=== PATIENT | female | born 1930 | race Caucasian/White ===

== ENCOUNTER 2017-06-27 19:52 | Inpatient (IN) | payer BC ==
[2017-06-27 21:38] LABS: MCH 29.1 pg (25.7-33.7); MCHC 33.4 g/dl (32.0-36.0); MEAN CELL VOLUME 87.2 fl (80-96); PLATELET COUNT 147 K/MM3 (134-434); RDW 14.7 % (11.6-15.6); WHITE BLOOD COUNT 5.8 K/mm3 (4.0-10.0)
[2017-06-27 21:50] LABS: INR 1.1 (0.82-1.09); PROTHROMBIN TIME (PATIENT) 12.1 SEC (9.98-11.88)
[2017-06-27 22:05] LABS: ALBUMIN 4.1 g/dl (3.4-5.0); ANION GAP 8 (8-16); CALCIUM 9.2 mg/dL (8.5-10.1); CO2 28 mmol/L (21-32); CREATININE 0.9 mg/dL (0.55-1.02); GLUCOSE,RANDOM 97 mg/dL (74-106); SGOT/AST 15 U/L (15-37); SGPT/ALT 19 U/L (12-78)
[2017-06-27 22:07] LABS: ALK PHOS 84 U/L (45-117); BILIRUBIN,TOTAL 0.6 mg/dL (0.2-1.0); TOT PROT 7.3 g/dl (6.4-8.2)
[2017-06-27 22:13] LABS: URINE APPEARANCE SLCLOUDY; URINE BILIRUBIN NEGATIVE (NEGATIVE); URINE BLOOD NEGATIVE (NEGATIVE); URINE COLOR YELLOW; URINE GLUCOSE (UA) NEGATIVE (NEGATIVE); URINE KETONE NEGATIVE (NEGATIVE); URINE NITRITE POSITIVE (NEGATIVE); URINE PROTEIN NEGATIVE (NEGATIVE); URINE UROBILINOGEN NEGATIVE mg/dL (0.2-1.0)
--- NOTE | 2017-06-27 22:19 | PDOC ---
History of Present Illness - General Chief Complaint: Rectal Bleed Stated Complaint: BLEEDING, CONFUSION Time Seen by Provider: 06/27/17 20:34 - History of Present Illness Initial Comments: 06/27/17 22:20 CHIEF COMPLAINT: AMS, bleeding HISTORY OF PRESENT ILLNESS: 87 yo F with hx of HTN, HLD, aortic aneursym s/p repair, mild dementia. fibroids presents to ED with AMS since approximately 1.5 hours ago. Daughter is at bedside; patient lives at home and when daughter returned from home today, the patient was found sitting on the porch in her undergarments without proper clothing, and upon moving the patient the daughter noticed "three blood clots on her dress." Daughter states that the patient is acting out of character despite the fact that she has "mild forgetfulness and sometimes can't find her words." No recent travel or sick contacts. PAST MEDICAL HISTORY: Denies past medical history FAMILY HISTORY: Denies SOCIAL HISTORY: Denies tobacco, alcohol, illicit drug use. SURGICAL HISTORY: cataract surgery ALLERGIES: nifedipine REVIEW OF SYSTEMS - per daughter at bedside, patient minimally responsive and confused General/Constitutional: "She seems a little more confused than normal" HEENT: Denies change in vision. Denies ear pain or discharge. Denies sore throat. Cardiovascular: Denies chest pain or shortness of breath. Respiratory: Denies cough, wheezing, or hemoptysis. Gastrointestinal: Denies nausea, vomiting, diarrhea or constipation. Denies rectal bleeding. Genitourinary: "We saw some blood clots on her dress." Musculoskeletal: Denies joint or muscle swelling or pain. Denies neck or back pain. Skin and breasts: Denies rash or easy bruising. PHYSICAL EXAM General Appearance: Well-appearing, appropriately dressed. No apparent distress. HEENT: EOMI, PERRLA, normal ENT inspection, normal voice, TMs normal, pharynx normal. No conjunctival pallor. No photophobia, scleral icterus. Neck: Supple. Trachea midline. No tenderness, rigidity, carotid bruit, stridor , lymphadenopathy, or thyromegaly. Respiratory/Chest: Lungs CTAB. Cardiovascular: RRR. S1, S2. Gastrointestinal/Abdominal: Normal bowel sounds. Abdomen soft, non-distended. No tenderness or rebound tenderness. No organomegaly, pulsatile mass, guarding , hernia, hepatomegaly, splenomegaly. Lymphatic: No adenopathy, tenderness. Musculoskeletal/Extremities: Normal inspection. FROM of all extremities, normal capillary refill. Pelvis Stable. No CVA tenderness. No tenderness to extremities, pedal edema, swelling, erythema or deformity. Integumentary: Appropriate color, dry, warm. No cyanosis, erythema, jaundice or rash Neurologic: Patient with some confusion and difficulty finding words. Appropriate mood/affect. Motor strength 5/5. No appreciable EOM palsy, facial droop or sensory deficit. Past History - Past Medical History Allergies/Adverse Reactions: Allergies Allergy/AdvReac Type Severity Reaction Status Date / Time nifedipine [From Procardia] Allergy Verified 06/27/17 20:03 Home Medications: Ambulatory Orders Cholecalciferol (Vitamin D3) [Vitamin D3] 1,000 unit PO DAILY 06/27/17 Cyanocobalamin Vit B-12 Inj. [Vitamin B12 Injection -] 1,000 mcg IM MONTHLY Levothyroxine [Synthroid -] 75 mcg PO DAILY 06/27/17 Losartan Potassium 25 mg PO DAILY 06/27/17 Dementia: Yes (possible) HTN: Yes Hypercholesterolemia: Yes - Surgical History Abdominal Surgery: (AAA REPAIR) - Psycho/Social/Smoking Cessation Hx Suicidal Ideation: No Smoking History: Never smoked Hx Alcohol Use: No Drug/Substance Use Hx: No *Physical Exam - Vital Signs Last Vital Signs Temp Pulse Resp BP Pulse Ox 98.4 F 80 18 130/74 90 L 06/27/17 20:03 06/27/17 20:03 06/27/17 20:03 06/27/17 20:03 06/27/17 20:03 Heart Score/ECG Review - History History: Slightly suspicious - Electrocardiogram EKG: Non specific repolarization disturbance - Age Age: >/= 65 - Risk Factors Risk Factors Heart Score: Yes Hx Hypertension, Yes Smoking History Based on the list above the patient has:: 1-2 risk factors - Troponin Troponin: >/=3x normal limit - Score Heart Score - Total: 6 ED Treatment Course - LABORATORY CBC & Chemistry Diagram: 06/27/17 21:10 06/27/17 21:10 - ADDITIONAL ORDERS Additional order review: Laboratory Results 06/27/17 06/27/17 21:10 20:45 INR 1.10 Stool Occult Blood Negative 06/27/17 21:10 RBC 4.19 MCV 87.2 MCHC 33.4 RDW 14.7 MPV 9.0 Neutrophils % Y Lymphocytes % Y - RADIOLOGY Radiology Studies Ordered: Category Date Time Status HEAD CT WITHOUT CONTRAST [CT] Stat CT Scan 06/27/17 20:58 Ordered Medical Decision Making - Medical Decision Making 06/27/17 23:25 87 yo F with hx of HTN, HLD, mild dementia presents to ED with AMS since approximately 1.5 hours ago. -CBC, CMP, PT/INR, trop -UA, UCx -Head CT -Pelvic US EKG unchanged from prior of 08/29. UA positive for nitrates, 24 WBC. Will cover with ceftriaxone. Head CT negative. 1st troponin 0.2. Heart score 6. Will admit for CASSIE. 06/27/17 23:44 Discussed case with covering PMD Mayte, will admit to tele for CASSIE. 2nd trop ordered. Ultrasound results: Uterine dimensions are 6.4 x 2.7 x 4.3 cm. Endometrial stripe is thickened for patient age measuring 1.1 cm. There is trace fluid within the endometrial cavity. The ovaries are not seen on this examination. There is no obvious free fluid. Read by: Vlad Syed MD *DC/Admit/Observation/Transfer Diagnosis at time of Disposition: Chest pain, rule out acute myocardial infarction Altered mental status Qualifiers: Altered mental status type: unspecified Qualified Code(s): R41.82 - Altered mental status, unspecified Urinary tract infection Qualifiers: Urinary tract infection type: site unspecified Hematuria presence: without hematuria Qualified Code(s): N39.0 - Urinary tract infection, site not specified - Discharge Dispostion Admit: Yes - Referrals
[2017-06-27 22:25] LABS: URINE LEUK ESTERASE 1+ (NEGATIVE)
[2017-06-27 22:28] LABS: URINE BACTERIA MODERATE /hpf (NONE SEEN); URINE MUCUS RARE; URINE RBC 1 /hpf (0-3); URINE WBC 24 /hpf (3-5)
[2017-06-27 22:34] LABS: BASOPHIL (MANUAL) 1 % (0-2.0)
[2017-06-27 22:36] LABS: TROPONIN I 0.2 ng/ml (0.00-0.05)
[2017-06-27] MEDS ORDERED: CEFTRIAXONE 1 GM in DEXTROSE 5%-WATER - 50 ML IVPB ONE (23:16)
[2017-06-27] MEDS ORDERED: ASPIRIN 81 MG CHEWABLE TABLETS PO ONE (23:20)
[2017-06-27] MEDS ORDERED: ASPIRIN 81 MG CHEWABLE TABLETS ONE (23:32)
[2017-06-27] MEDS ORDERED: CEFTRIAXONE 50 ML ONE (23:32)
[2017-06-28 02:50] LABS: TROPONIN I 0.18 ng/ml (0.00-0.05)
[2017-06-28 03:57] VITALS: BMI 27.9
[2017-06-28] MEDS ORDERED: ACETAMINOPHEN 325 MG TABLET (FP) PO PRN (05:35)
--- NOTE | 2017-06-28 08:25 | HP ---
Admitting History and Physical - Admission History of Present Illness: 87 yo F with hx of HTN, HLD, aortic aneursym s/p repair, mild dementia. 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 ASSISTANT: Yes: Dementia Cardiovascular: Yes: Aneurysm (AAA), HTN, Hyperlipdemia, Other Heme/Onc: Yes: B12 Deficiency Musculoskeletal: Yes: Osteoarthritis Endocrine: Yes: Hypothyroidism - Smoking History Smoking history: Never smoked - Alcohol/Substance Use Hx Alcohol Use: No Home Medications - Allergies Allergies/Adverse Reactions: Allergies Allergy/AdvReac Type Severity Reaction Status Date / Time nifedipine [From Procardia] Allergy Verified 06/27/17 20:03 - Home Medications Home Medications: Ambulatory Orders Cholecalciferol (Vitamin D3) [Vitamin D3] 1,000 unit PO DAILY 06/27/17 Cyanocobalamin Vit B-12 Inj. [Vitamin B12 Injection -] 1,000 mcg IM MONTHLY Levothyroxine [Synthroid -] 75 mcg PO DAILY 06/27/17 Losartan Potassium 25 mg PO DAILY 06/27/17 Review of Systems - Review of Systems Constitutional: reports: Weakness Neurological: reports: Confusion Physical Examination Vital Signs: Vital Signs Temperature 98 F 06/28/17 06:23 Pulse Rate 62 06/28/17 06:23 Respiratory Rate 20 06/28/17 06:23 Blood Pressure 144/83 06/28/17 06:23 O2 Sat by Pulse Oximetry (%) 90 L 06/27/17 20:03 Cardiovascular: Yes: S1, S2 Respiratory: Yes: Regular, CTA Bilaterally Gastrointestinal: Yes: Normal Bowel Sounds, Soft, Other (ABDOMINAL WALL HERNIA) . No: Tenderness Imaging - Results Cat Scan: Report Reviewed Problem List - Problems (1) Altered mental status Assessment/Plan: R/O UTI CT OF HEAD--OLD CVA MONITOR Code(s): R41.82 - ALTERED MENTAL STATUS, UNSPECIFIED Qualifiers: Altered mental status type: unspecified Qualified Code(s): R41.82 - Altered mental status, unspecified (2) Urinary tract infection Assessment/Plan: JOSE BX ID CONSULT CULTURES Code(s): N39.0 - URINARY TRACT INFECTION, SITE NOT SPECIFIED Qualifiers: Urinary tract infection type: site unspecified Hematuria presence: without hematuria Qualified Code(s): N39.0 - Urinary tract infection, site not specified; R31.9 - Hematuria, unspecified (3) Elevated troponin Assessment/Plan: FOLLOW TRENDS ECHO CARDIO Code(s): R74.8 - ABNORMAL LEVELS OF OTHER SERUM ENZYMES (4) Hypothyroid Assessment/Plan: CHECK DUSTIN SYNTHROID Code(s): E03.9 - HYPOTHYROIDISM, UNSPECIFIED
[2017-06-28 09:44] LABS: FREE T4 0.88 ng/dl (0.76-1.46); THYROID STIMULATING HORMONE 3.69 uIU/ml (0.358-3.74); TROPONIN I 0.18 ng/ml (0.00-0.05)
[2017-06-28] MEDS ORDERED: CEFTRIAXONE 50 ML IVPB SCH (10:00)
--- NOTE | 2017-06-28 10:09 | PN ---
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 (short form) - Note 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: ID consult dictated 87 year old female with dementia-admitted for abnormal behavior and blood clots on her dress currently she is awake and alert she has some word finding difficulties which per ER note is old no fevers no c/o dysuria no SPT or CVAT on exam I doubt that she has a UTI this would certainly not explain her behavior yesterday suggest neurology evaluation ?work up for bleeding- ?per vagina, per rectum +troponins per cardiology can d/c antiibotics suspect asymptomatic bacteriuria Problem List - Problems (1) Asymptomatic bacteriuria Code(s): R82.71 - BACTERIURIA (2) Altered mental status Code(s): R41.82 - ALTERED MENTAL STATUS, UNSPECIFIED Qualifiers: Altered mental status type: unspecified Qualified Code(s): R41.82 - Altered mental status, unspecified (3) Elevated troponin Code(s): R74.8 - ABNORMAL LEVELS OF OTHER SERUM ENZYMES
--- NOTE | 2017-06-28 10:24 | EKG ---
Test Reason : Blood Pressure : / mmHG Vent. Rate : 068 BPM Atrial Rate : 068 BPM P-R Int : 194 ms QRS Dur : 130 ms QT Int : 452 ms P-R-T Axes : 029 -57 114 degrees QTc Int : 480 ms NORMAL SINUS RHYTHM LEFT AXIS DEVIATION CONSISTANT WITH LAFB. RBBB PATTERN IN V2 LEFT VENTRICULAR HYPERTROPHY WITH QRS WIDENING AND REPOLARIZATION ABNORMALITY CANNOT RULE OUT ANTEROSEPTAL INFARCT , AGE UNDETERMINED ABNORMAL ECG WHEN COMPARED WITH ECG OF 27-JUN-2017 23:25, LEFT BUNDLE BRANCH BLOCK IS NO LONGER PRESENT qS IN V2 EITHER RELATED TO LAFB OR ASWMI,AGE INDETERMINATE REPEAT EKG IF CLINICALLY INDICATED Confirmed by ERIC OLIVA MD ([id number]) on 06/28/2017 10:24:10 AM Referred By: Confirmed By:ERIC OLIVA MD
--- NOTE | 2017-06-28 10:46 | CONS ---
INFECTIOUS DISEASE CONSULTATION DATE OF CONSULTATION: 06/28/2017 HISTORY OF PRESENT ILLNESS: This is an 87-year-old woman with mild dementia who lives at home with her family. She lives at home, and when her daughter returned home, she found she was sitting on the porch in her undergarments and she was noted to have some blood clots on her clothing. The patient appeared to be acting bizarrely and was brought to the emergency room for these issues. She has some mild forgetfulness and has some word-finding difficulties intermittently at baseline. This is per the ER note. There is no history of any recent travel or sick contacts. There are no fevers or chills. I am asked to see her for possible UTI. The patient is awake and alert. She denies chest pain. She denies dysuria or back pain. She has no fevers or chills. PAST MEDICAL HISTORY: Notable for hypertension, hyperlipidemia, and mild dementia, as well as fibroids. SURGICAL HISTORY: Notable for aortic aneurysm repair. She has had a cataract surgery as well. FAMILY HISTORY: Noncontributory. SOCIAL HISTORY: She lives with her daughter. There is no history of tobacco or illicit drug use. REVIEW OF SYSTEMS: Per the daughter, she seems a little more confused than normal. Otherwise, it is negative except for the blood clots on her dress. PHYSICAL EXAMINATION: General: She is awake and alert. She has been afebrile. She is resting quite comfortably. Vital Signs: Temperature is 98, pulse is 62, blood pressure 144/83, respiratory rate is 20. She weighs 168 pounds. HEENT: She is normocephalic. Her eyes are anicteric. She has no thrush or pharyngitis. Neck: Supple. Lungs: Clear to auscultation. Heart: Regular rate and rhythm. Abdomen: Soft. She has a large incisional hernia with some soft, palpable bowel that is nontender. She has no suprapubic or CVA tenderness. Extremities: Without edema. DIAGNOSTIC DATA: White count is 5.8, hemoglobin 12.2, platelets are 147. Her BUN and creatinine are 13 and 0.9 with normal LFTs. Her troponin is elevated at 0.20. Urinalysis shows 24 white cells. Stool occult blood was negative. Urine culture has been sent. Head CT was done. 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 No acute pathology was noted. Bladder ultrasound is notable for thickened endometrium. In summary, this is an 87-year-old woman admitted for abnormal behavior and blood clots on her dress. I doubt she has a UTI. This would not explain her behavior. I suggest neurology evaluation, workup for her bleeding (is this vaginal or rectal?). She probably will need a gynecologic evaluation. As well, she has positive troponins. I would suggest we stop her antibiotics as this is most consistent with asymptomatic bacteriuria. Cardiology to evaluate the elevated troponins and neurologic evaluation of altered mental status. We will see the patient p.r.n. Please call back if needed. LORENE MARTINEZ M.D. [id number]
[2017-06-28] MEDS: LOSARTAN POTASSIUM 25 MG TABLET PO SCH (11:17)
[2017-06-28] MEDS: LEVOTHYROXINE NA 75 MCG TABLET (FP) PO SCH (11:17)
--- NOTE | 2017-06-28 11:50 | EKG ---
Test Reason : Blood Pressure : / mmHG Vent. Rate : 072 BPM Atrial Rate : 072 BPM P-R Int : 206 ms QRS Dur : 122 ms QT Int : 422 ms P-R-T Axes : 041 -53 107 degrees QTc Int : 462 ms NORMAL SINUS RHYTHM LEFT AXIS DEVIATION LEFT BUNDLE BRANCH BLOCK ABNORMAL ECG WHEN COMPARED WITH ECG OF 22-AUG-2016 20:07, LEFT BUNDLE BRANCH BLOCK IS NOW PRESENT MINIMAL CRITERIA FOR SEPTAL INFARCT ARE NO LONGER PRESENT CHANGE IN VECTOR IN V1-V2 REPEAT EKG IF CLINICALLY INDICATED Confirmed by ERIC OLIVA MD ([id number]) on 06/28/2017 11:50:28 AM Referred By: Confirmed By:ERIC OLIVA MD
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
--- NOTE | 2017-06-28 14:09 | CON.CARD ---
Consult Consult Specialty:: Cardiology Referred by:: Dr. Bates Reason for Consultation:: Elevated troponin - History of Present Illness Chief Complaint: Altered mental status History of Present Illness: 87 year-old woman with a PMHx of HTN, HLD, aortic aneursym s/p repair, mild dementia. fibroids admitted with altered mental status with evidence of UTI. The patient was found sitting on the porch in her undergarments and three blood clots on her dress. She has been treated for UTI. But she is still confused. She was found to have elevated troponin (0.18, 0.18). Her ECG is uninterpretable due to LBBB. Tele shows sinus rhythm with occasional VPCs. She denies chest pain, shortness of breath or palpitation. No edema, orthopnea or PND. 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 [Vitamin B12 Injection -] 1,000 mcg IM MONTHLY Levothyroxine [Synthroid -] 75 mcg PO DAILY 06/27/17 Losartan Potassium 25 mg PO DAILY 06/27/17 Review of Systems - Review of Systems Constitutional: reports: Other (Awake, alert. Confused.) Eyes: reports: No Symptoms HENT: reports: No Symptoms Neck: reports: No Symptoms Cardiovascular: reports: No Symptoms Respiratory: reports: No Symptoms Gastrointestinal: reports: No Symptoms Genitourinary: reports: No Symptoms Breasts: reports: No Symptoms Reported Neurological: reports: Confusion Endocrine: reports: No Symptoms Hematology/Lymphatic: reports: No Symptoms Vital Signs: Vital Signs Temperature 98.2 F 06/28/17 10:00 Pulse Rate 66 06/28/17 10:00 Respiratory Rate 14 06/28/17 10:00 Blood Pressure 150/74 06/28/17 10:00 O2 Sat by Pulse Oximetry (%) 94 L 06/28/17 08:00 Constitutional: Yes: Well Nourished, No Distress Eyes: Yes: Conjunctiva Clear, PERRL HENT: Yes: Atraumatic, Normocephalic Neck: Yes: Supple, Trachea Midline Respiratory: Yes: Regular, CTA Bilaterally Gastrointestinal: Yes: Normal Bowel Sounds, Soft Cardiovascular: Yes: Regular Rate and Rhythm JVD: No Carotid Bruit: No Heart Sounds: Yes: S1, S2 Murmur: Yes: Systolic Murmur, Grade 1 Extremities: Yes: WNL Edema: No Peripheral Pulses WNL: Yes Integumentary: Yes: WNL Psychiatric: Yes: Other (Confused) - Other Data Labs, Other Data: INR, PTT INR 1.10 (0.82-1.09) 06/27/17 21:10 Troponin, BNP 06/28/17 06/28/17 02:19 08:30 Troponin I 0.18 H 0.18 H Troponin, BNP 06/28/17 06/28/17 02:19 08:30 Troponin I 0.18 H 0.18 H Imaging - Results EKG: Pending (Sinus rhytns. LBBB.), Report Reviewed, Image Reviewed (Sinus. LBBB.) Problem List - Problems (1) Elevated troponin Code(s): R74.8 - ABNORMAL LEVELS OF OTHER SERUM ENZYMES Assessment/Plan 87 year-old woman with a PMHx of HTN, HLD, aortic aneursym s/p repair, mild dementia. fibroids admitted with altered mental status with evidence of UTI. She was found to have elevated troponin (0.18, 0.18). Her ECG is uninterpretable due to LBBB. Tele shows sinus rhythm with occasional VPCs. Patient has no symptoms of angina or CHF 1) Mildly elevated troponin, remains in 0.18 and 0.18. No symptoms of angina. It is likely not acute coronary syndrome. Repeat troponin. Obtain echocardiogram for LV systolic function and regional wall motion. Add Aspirin 81 mg daily. Add Metoprolol succinate 25 mg daily for cardiac protection. Continue Losartan.
[2017-06-29] MEDS: LEVOTHYROXINE NA 75 MCG TABLET (FP) PO SCH (06:17)
--- NOTE | 2017-06-29 08:13 | PN ---
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, Physician History of Present Illness: in bed no cp confused - Current Medication List Current Medications: Active Medications Acetaminophen (Tylenol -) 650 mg PO Q6H PRN PRN Reason: FEVER OR PAIN Levothyroxine Sodium (Synthroid -) 75 mcg PO DAILY@0700 [facility] Last Admin: 06/29/17 06:17 Dose: 75 mcg Losartan Potassium (Cozaar -) 25 mg PO DAILY [facility] Last Admin: 06/28/17 11:17 Dose: 25 mg - Objective Vital Signs: Vital Signs Temperature 98 F 06/29/17 06:27 Pulse Rate 69 06/29/17 06:27 Respiratory Rate 20 06/29/17 06:27 Blood Pressure 134/69 06/29/17 06:27 O2 Sat by Pulse Oximetry (%) 94 L 06/28/17 21:00 Cardiovascular: Yes: Regular Rate and Rhythm Respiratory: Yes: Regular, CTA Bilaterally Gastrointestinal: Yes: Normal Bowel Sounds, Soft. No: Tenderness Labs: INR, PTT INR 1.10 (0.82-1.09) 06/27/17 21:10 Problem List - Problems (1) Altered mental status Assessment/Plan: R/O UTI--id noted--no abx CT OF HEAD--OLD CVA MONITOR Code(s): R41.82 - ALTERED MENTAL STATUS, UNSPECIFIED Qualifiers: Altered mental status type: unspecified Qualified Code(s): R41.82 - Altered mental status, unspecified (2) Urinary tract infection Assessment/Plan: OFF IV ABX ID CONSULT NOTED CULTURES Code(s): N39.0 - URINARY TRACT INFECTION, SITE NOT SPECIFIED Qualifiers: Urinary tract infection type: site unspecified Hematuria presence: without hematuria Qualified Code(s): N39.0 - Urinary tract infection, site not specified; R31.9 - Hematuria, unspecified (3) Elevated troponin Assessment/Plan: FOLLOW TRENDS ECHO CARDIO NOTED AWAIT ECHO Code(s): R74.8 - ABNORMAL LEVELS OF OTHER SERUM ENZYMES (4) Hypothyroid Assessment/Plan: CHECK DUSTIN SYNTHROID Code(s): E03.9 - HYPOTHYROIDISM, UNSPECIFIED (5) Vaginal bleeding Assessment/Plan: 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
[2017-06-29 08:28] LABS: TROPONIN I 0.13 ng/ml (0.00-0.05)
[2017-06-29] MEDS: LOSARTAN POTASSIUM 25 MG TABLET PO SCH (09:26)
--- NOTE | 2017-06-29 12:32 | PN ---
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
--- NOTE | 2017-06-29 15:34 | PN ---
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, Physician Chief Complaint: Patient appears comfortable. She denies chest pain, SOB or palpitation. Tele shows sinus rhythm with occasional single VPCs. History of Present Illness: 87 year-old woman with a PMHx of HTN, HLD, aortic aneursym s/p repair, mild dementia. fibroids admitted with altered mental status with evidence of UTI. The patient was found sitting on the porch in her undergarments and three blood clots on her dress. She has been treated for UTI. But she is still confused. She was found to have elevated troponin (0.18, 0.18, 0.20) with normal CPK. Her ECG is uninterpretable due to LBBB. Tele shows sinus rhythm with occasional VPCs. Echo 06/29/2017 showed mild LV dilatation with discrete septal hypertrophy. Moderate septal hypokinesis and mild other wall hypokinesis. Low- normal LV systolic function. LVEF = 50%. - Current Medication List Current Medications: Active Medications Acetaminophen (Tylenol -) 650 mg PO Q6H PRN PRN Reason: FEVER OR PAIN Levothyroxine Sodium (Synthroid -) 75 mcg PO DAILY@0700 [facility] Last Admin: 06/29/17 06:17 Dose: 75 mcg Losartan Potassium (Cozaar -) 25 mg PO DAILY [facility] Last Admin: 06/29/17 09:26 Dose: 25 mg - Objective Vital Signs: Vital Signs Temperature 98 F 06/29/17 06:27 Pulse Rate 69 06/29/17 06:27 Respiratory Rate 20 06/29/17 06:27 Blood Pressure 134/69 06/29/17 06:27 O2 Sat by Pulse Oximetry (%) 94 L 06/28/17 21:00 Constitutional: Yes: Well Nourished, No Distress, Calm Eyes: Yes: WNL, Conjunctiva Clear HENT: Yes: WNL, Atraumatic, Normocephalic Neck: Yes: Supple, Trachea Midline Cardiovascular: Yes: Regular Rate and Rhythm, Murmur, Other (I-II/ LISA.) Respiratory: Yes: Regular, CTA Bilaterally Gastrointestinal: Yes: Normal Bowel Sounds, Soft ...Rectal Exam: Yes: Deferred Extremities: Yes: WNL Edema: No Peripheral Pulses WNL: Yes Labs: INR, PTT INR 1.10 (0.82-1.09) 06/27/17 21:10 Problem List - Problems (1) Elevated troponin Code(s): R74.8 - ABNORMAL LEVELS OF OTHER SERUM ENZYMES Assessment/Plan 87 year-old woman with a PMHx of HTN, HLD, aortic aneursym s/p repair, mild dementia. fibroids admitted with altered mental status with evidence of UTI. She was found to have elevated troponin (0.18, 0.18). Her ECG is uninterpretable due to LBBB. Tele shows sinus rhythm with occasional VPCs. Patient has no symptoms of angina or CHF Mildly elevated troponin, remains in 0.18, 0.18 and 0.20. No symptoms of angina. Echo 06/29/2017 showed mild global LV systolic dysfunction with low normal LVEF. It is likely not acute coronary syndrome. Conservative cardiac care. Add Aspirin 81 mg daily. Add Metoprolol succinate 25 mg daily for cardiac protection. Continue Losartan. May discontinue tele.
--- NOTE | 2017-06-29 17:52 | CON.OBG ---
Consult Consult Specialty:: gynecology Reason for Consultation:: r/o vaginal bleeding - History of Present Illness History of Present Illness: 87 yo postmenopausal woman with multiple medical problems admitted for altered mental status and symptoms suspicious of UTI Patient is seen sitting at nursing station, no family members at bedside. Patient unable to give appropriate history or consent for vaginal exam. Attempt to contact family member, message left on voicemail. Per notes and RN - patient was found to have bleeding on clothing on 06/28 No additional bleeding since then. No acute complaints. 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 Vital Signs: Vital Signs Temperature 98.0 F 06/29/17 15:34 Pulse Rate 80 06/29/17 15:34 Respiratory Rate 22 06/29/17 10:00 Blood Pressure 135/70 06/29/17 15:34 O2 Sat by Pulse Oximetry (%) 92 L 06/29/17 09:00 Constitutional: Yes: No Distress, Calm Respiratory: Yes: Regular Gastrointestinal: Yes: WNL Pelvis: Yes: Other (deferred) Internal Exam Deferred: No Assessment/Plan 87 yo HD #2 admitted for altered mental status, r/o UTI 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
[2017-06-30] MEDS: LEVOTHYROXINE NA 75 MCG TABLET (FP) PO SCH (06:23)
--- NOTE | 2017-06-30 08:39 | DS ---
Physical Examination Vital Signs: Vital Signs Temperature 8.4 F L 06/30/17 02:00 Pulse Rate 79 06/30/17 02:00 Respiratory Rate 20 06/30/17 02:00 Blood Pressure 133/69 06/30/17 02:00 O2 Sat by Pulse Oximetry (%) 94 L 06/29/17 21:00 Cardiovascular: Yes: Regular Rate and Rhythm Respiratory: Yes: Regular, CTA Bilaterally Gastrointestinal: Yes: Normal Bowel Sounds, Soft Discharge Summary Reason For Visit: CHEST PAIN AMS UTI Current Active Problems Altered mental status (Acute) Asymptomatic bacteriuria (Acute) Chest pain, rule out acute myocardial infarction (Acute) Elevated troponin (Acute) Hypothyroid (Acute) Urinary tract infection (Acute) Vaginal bleeding (Acute) Hospital Course: History of Present Illness: 87 yo F with hx of HTN, HLD, aortic aneursym s/p repair, mild dementia. 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 Cardiovascular: Yes: Aneurysm (AAA), HTN, Hyperlipdemia, Other Heme/Onc: Yes: B12 Deficiency Musculoskeletal: Yes: Osteoarthritis Endocrine: Yes: Hypothyroidism - Problems (1) Altered mental status Assessment/Plan: R/O UTI--id noted--no abx CT OF HEAD--OLD CVA MONITOR Code(s): R41.82 - ALTERED MENTAL STATUS, UNSPECIFIED Qualifiers: Altered mental status type: unspecified Qualified Code(s): R41.82 - Altered mental status, unspecified (2) Urinary tract infection Assessment/Plan: OFF IV ABX ID CONSULT NOTED CULTURES Code(s): N39.0 - URINARY TRACT INFECTION, SITE NOT SPECIFIED Qualifiers: Urinary tract infection type: site unspecified Hematuria presence: without hematuria Qualified Code(s): N39.0 - Urinary tract infection, site not specified; R31.9 - Hematuria, unspecified (3) Elevated troponin Assessment/Plan: FOLLOW TRENDS ECHO CARDIO NOTED AWAIT ECHO Code(s): R74.8 - ABNORMAL LEVELS OF OTHER SERUM ENZYMES (4) Hypothyroid Assessment/Plan: CHECK [facility] SYNTHROID Code(s): E03.9 - HYPOTHYROIDISM, UNSPECIFIED (5) Vaginal bleeding Assessment/Plan: 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 [Vitamin B12 Injection -] 1,000 mcg IM MONTHLY Levothyroxine [Synthroid -] 75 mcg PO DAILY 06/27/17 Losartan Potassium 25 mg PO DAILY 06/27/17 Aspirin Coated [Ecotrin -] 81 mg PO DAILY tab 06/30/17 Metoprolol Succinate [Toprol XL -] 25 mg PO DAILY #30 tbs 06/30/17
[2017-06-30] MEDS ORDERED: METOPROLOL SUCCINATE 25 MG TAB.SR.24H (FP) PO SCH (10:00)
[2017-06-30] MEDS ORDERED: ASPIRIN COATED 81 MG TABLET.EC PO SCH (10:00)
[2017-06-30] MEDS: LOSARTAN POTASSIUM 25 MG TABLET PO SCH (10:56)
--- NOTE | 2017-06-30 11:37 | CONSULT ---
Consult - text type - Consultation Consultation Note: NEUROLOGY CONSULTATION is greatly appreciated: This 87 yo RH woman lives with her daughter. PMH sig for HTN, Chol, hypothyroidism, fibroids, ASVD, s/p repair of AAA, B12 deficiency and "mild dementia." On: Metoprolol, losartan, L-thyroxin and B12. According to her daughter Pt "hasn't been herself" x few days with "more confusion." Admitted 06/27/17 after she was found sitting outside in her underwear. On admission: Urinary WBC=24. TSH=3.69. N64=[address] of head (reviewed): Moderately severe, diffuse, atrophy; severe, diffuse microvascular changes with white matter lucency; marked ex-vacuo hydrocephalus; and dense calcifications of the intracranial arteries. I do not appreciate any discrete strokes. Consultation of Dr. Ochoa read and and appreciated. FAWN: No bruits. Cor reg. Left knee and ankle with arthritic deformity. No evidence of external head trauma. NEURO: Very confused. Doesn't know she is in a hospital. Cannot give her birthday, month or year. Follow simple commands. Apraxic for use of breakfast utensils. + Glabella, snout, grasps. CN II-XII: Normal Motor: Sl rigid tdone without cogwheeling. No drift. Symmetrical grasps. Normal reflexes except AJ's No FTN dystaxia Withdraws all 4's to pinch Gait is unsteady, retropulsive. IMP: Moderately severe, b/l cerebral dysfunction (OMS, Chronic) without obvious asymmetry to suggest stroke. Most c/w Alzheimer's Disease. Recent worsening likely due to Toxic-metabolic encephalopathy secondary to infection (UTI). SUGGEST: UTI is clearly symptomatic and must be sterilized Begin donepezil 5 mg PO after breakfast. Neurology f/u as out patient to increase and monitor meds for OMS. 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 Thank you very much, Andriy dOen MD
[2017-06-30 12:20] VITALS: BP 116/68; PULSE 68; TEMP 98.6
[2017-07-01] MEDS ORDERED: DONEPEZIL HCL 5 MG TABLET (FP) PO SCH (10:00)
== END 2017-06-30 12:20 | disposition home or self-care (01) | DRG 689 ==
LOC: JER 19:52 → JERBED 06-28 01:01 → J4W 06-28 02:58
PROVIDERS: ADMIT Family Medicine; ATTEND Family Medicine
DX: N39.0 Urinary tract infection, site not specified (principal); G93.41 Metabolic encephalopathy; I10 Essential (primary) hypertension; E78.5 Hyperlipidemia, unspecified; I71.9 Aortic aneurysm of unspecified site, without rupture; F03.90 Unspecified dementia, unspecified severity, without behavioral disturbance, psychotic disturbance, mood disturbance, and anxiety; E53.8 Deficiency of other specified B group vitamins; E03.9 Hypothyroidism, unspecified; M19.90 Unspecified osteoarthritis, unspecified site; R74.8 Abnormal levels of other serum enzymes; N93.9 Abnormal uterine and vaginal bleeding, unspecified; I44.7 Left bundle-branch block, unspecified; D25.9 Leiomyoma of uterus, unspecified; R82.71 Bacteriuria; Z87.891 Personal history of nicotine dependence
CPT/HCPCS: 36415; 70450-TC; 71010-TC; 74178-TC; 76856-TC; 80053; 80061; 81003; 81015; 82272; 82607; 83721; 84439; 84443; 84484; 85025; 85610; 86850; 86900; 86901; 87086; 87186; 93005; 93010; 93306-TC; 97116-GP; 97161-GP; 99282-25

== ENCOUNTER 2018-06-20 10:36 | Inpatient (IN) | payer BC, OTHER ==
[2018-06-20 10:52] VITALS: BMI 26.2
[2018-06-20] MEDS: SODIUM CHLORIDE 1,000 ML IV SCH (11:00)
--- NOTE | 2018-06-20 11:04 | PDOC ---
History of Present Illness - History of Present Illness Initial Comments: 06/20/18 11:11 "The patient is a 88 year old female from home, accompanied by daughter, with a significant PMH of HTN, HLD, aortic aneurysm s/p repair, mild dementia, fibroids who presents to the emergency department via EMS with AMS and right sided facial droop since this morning. As per the patients daughter, she reports her heard a thump around 9:00 am this morning while getting ready for work and went upstairs to find the patient on the floor. She states the patient was noted to be more confused than baseline and have a right sided facial droop. She states the patient is normally able to follow commands but this morning was unable to. She reports the patients last known well at approx 6:50 am this morning. The daughter also reports the patient is currently on Cipro for a UTI. The patients primary language is [place] with the daughter at bedside assisting with translation. She denies any recent fever, chills, nausea or vomit. Denies any recent complaints of headache, chest pain, palpitations, lightheadedness or shortness of breath. Denies any recent constipation, diarrhea , melena or hematochezia. Allergies: nifedipine Social history: No reported. Lives at home with family. PCP: Dr Cici Bates " <Howie Moody - Last Filed: 06/20/18 13:16> <Alonzo Mcintosh - Last Filed: 06/20/18 13:18> - General Chief Complaint: CVA/TIA Stated Complaint: CVA/TIA Time Seen by Provider: 06/20/18 10:38 Past History - Past Medical History CVA: Yes (old) COPD: No Dementia: Yes (mild) HTN: Yes Hypercholesterolemia: Yes Thyroid Disease: Yes (hypo) - Surgical History Abdominal Surgery: (AAA REPAIR) - Suicide/Smoking/Psychosocial Hx Smoking History: Never smoked Have you smoked in the past 12 months: No Information on smoking cessation initiated: No Hx Alcohol Use: No Drug/Substance Use Hx: No <Howie Moody - Last Filed: 06/20/18 13:16> <Alonzo Mcintosh - Last Filed: 06/20/18 13:18> - Past Medical History Allergies/Adverse Reactions: Allergies Allergy/AdvReac Type Severity Reaction Status Date / Time nifedipine [From Procardia] Allergy Verified 06/20/18 10:51 Home Medications: Ambulatory Orders Cholecalciferol (Vitamin D3) [Vitamin D3] 1,000 unit PO DAILY 06/27/17 Levothyroxine [Synthroid -] 75 mcg PO DAILY 06/27/17 Ciprofloxacin [Cipro (Restricted To Id)] 250 mg PO BID 06/20/18 Metoprolol Succinate [Toprol XL -] 12.5 mg PO DAILY 06/20/18 Review of Systems - Review of Systems Comments:: 06/20/18 11:11 "GENERAL/CONSTITUTIONAL: No fever or chills. HEAD, EYES, EARS, NOSE AND THROAT: No change in vision. No ear pain or discharge. No sore throat. CARDIOVASCULAR: No chest pain or shortness of breath. RESPIRATORY: No cough, wheezing, or hemoptysis. GASTROINTESTINAL: No nausea, vomiting, diarrhea or constipation. GENITOURINARY: No dysuria, frequency, or change in urination. MUSCULOSKELETAL: No joint or muscle swelling or pain. No neck or back pain. SKIN: No rash NEUROLOGIC: +R sided weakness. +Right sided facial droop. No headache, vertigo, loss of consciousness. ENDOCRINE: No increased thirst. No abnormal weight change. HEMATOLOGIC/LYMPHATIC: No anemia, easy bleeding, or history of blood clots. ALLERGIC/IMMUNOLOGIC: No hives or skin allergy. " <Howie Moody - Last Filed: 06/20/18 13:16> *Physical Exam - Vital Signs Last Vital Signs Temp Pulse Resp BP Pulse Ox 98.4 F 75 18 171/90 95 06/20/18 10:48 06/20/18 10:48 06/20/18 10:48 06/20/18 10:48 06/20/18 10:48 - Physical Exam Comments: 06/20/18 11:03 "GENERAL: Awake, alert, in no acute distress. HEAD: No signs of trauma EYES: PERRLA, EOMI, sclera anicteric, conjunctiva clear ENT: Auricles normal inspection, hearing grossly normal, nares patent, oropharynx clear without exudates. Moist mucosa NECK: Nontender, no stepoffs, Normal ROM, supple, no lymphadenopathy, JVD, or masses LUNGS: Breath sounds equal, clear to auscultation bilaterally. No wheezes, and no crackles HEART: Regular rate and rhythm, normal S1 and S2, no murmurs, rubs or gallops ABDOMEN: Soft, nontender, normoactive bowel sounds. No guarding, no rebound. No masses EXTREMITIES: Normal range of motion, no edema. No clubbing or cyanosis. No cords, erythema, or tenderness NEUROLOGICAL: + R facial droop, does not follow commands, RUE and RLE with pronounced weakness SKIN: Warm, Dry, normal turgor, no rashes or lesions noted." <HeidyHowie - Last Filed: 06/20/18 13:16> - Vital Signs Last Vital Signs Temp Pulse Resp BP Pulse Ox 98.4 F 75 18 171/90 95 06/20/18 10:48 06/20/18 10:48 06/20/18 10:48 06/20/18 10:48 06/20/18 10:48 <Alonzo Mcintosh - Last Filed: 06/20/18 13:18> NIH Stroke Scale - Last Known Well Date/Time & Onset Date Last Known Well: 06/20/18 Time Last Known Well: 06:50 - Initial Evaluation Level of consciousness: Alert Ask patient the month and their age: Both incorrect Ask patient to open & close eyes; make fist and let go: Both incorrect Best gaze (horizontal eye movement): Normal Facial paresis (Show teeth/raise eyebrows/close eyes tight): Minor paralysis ( flattened nasolabial fold, asymmetry on smiling) Motor Function: Left Arm: Normal Motor Function: Right Arm: Some effort against gravity Motor Function: Left Leg: Normal (extends leg 30 degrees for 5 seconds without drift) Motor Function: Right Leg: Some effort against gravity Limb Ataxia: Untestable (Joint fused or limb amputated), explain: Sensory(Use pinprick test arms,legs,trunk,face/side to side): Severe to total sensory loss Best language (Describe picture, name items, read sentences): Severe aphasia Dysarthria (read several words): Mild to moderate slurring of words Extinction and Inattention: No abnormality <HeidyHowie - Last Filed: 06/20/18 13:16> Critical Care Time/MDM Note Total Critical Care Time: 60 Critical Care Statement: The care of this patient involved high complexity decision making to prevent further life threatening deterioration of the patient 's condition and/or to evaluate & treat vital organ system(s) failure or risk of failure. - Medical Decision Making Note: 06/20/18 11:01 88 F with R side weakness and facial droop. LKN [address] head with no bleed. Pt outside window for TPA given age >80. Discuss[address] with Dr. Oden, who does not recommend TPA. - Labs, trop - CXR, UA - Admit 06/20/18 12:20 EKG with TWI in I and aVL Trop 0.22 Rectal aspirin given 06/20/18 13:[address] Bates <Howie Moody - Last Filed: 06/20/18 13:16> - Medical Decision Making Note: 06/20/18 12:[address] Cici Bates ([phone]) at 12:20 pm. Pending return phone call. 06/20/18 13:08 Second call placed to Dr. Cici Bates at 1:05 pm. Case discussed. <Alonzo Mcintosh - Last Filed: 06/20/18 13:18> Discharge Disposition - Discharge Dispostion Decision to Admit order: Yes - Transfer to Acute Care Facility Transfer comment: 06/20/18 13:16 I, Dr. Howie Moody MD, attest that this document has been prepared under my direction and personally reviewed by me in its entirety. I further attest, that it accurately reflects all work, treatment, procedures and medical decision -making performed by me. <Howie Moody - Last Filed: 06/20/18 13:16> <Alonzo Mcintosh - Last Filed: 06/20/18 13:18> - Diagnosis Cerebrovascular accident (CVA) - Referrals Referrals: Cici Bates MD [Primary Care Provider] - - Patient Instructions - Post Discharge Activity Attestations - Attestations 06/20/18 11:24 Documentation prepared by Alonzo Mcintosh, acting as senior medical writer for Howie Moody MD. <Alonzo Mcintosh - Last Filed: 06/20/18 13:18>
[2018-06-20 11:14] LABS: BASO % 0.8 % (0-2.0); EOS % 0.5 % (0-4.5); HEMATOCRIT 38.3 % (32.4-45.2); HEMOGLOBIN 12.9 GM/dL (10.7-15.3); LYMPH % 28.5 % (8-40); MCHC 33.7 g/dl (32.0-36.0); MEAN CELL VOLUME 85.9 fl (80-96); MEAN PLT VOLUME 9.3 fl (7.5-11.1); MONO % 26.6 % (3.8-10.2); NEUT % 43.6 % (42.8-82.8); PLATELET COUNT 146 K/MM3 (134-434); RBC 4.45 M/mm3 (3.60-5.2); RDW 14.1 % (11.6-15.6); WHITE BLOOD COUNT 4.4 K/mm3 (4.0-10.0)
[2018-06-20] MEDS ORDERED: ASPIRIN 300 MG SUPP.RECT PR ONE (11:23)
[2018-06-20 11:26] LABS: INR 1.07 (0.83-1.09); PROTHROMBIN TIME (PATIENT) 12.1 SEC (9.7-13.0)
[2018-06-20] MEDS ORDERED: ASPIRIN 300 MG SUPP.RECT RC ONE (11:26)
[2018-06-20 11:44] LABS: URINE APPEARANCE CLEAR; URINE BILIRUBIN NEGATIVE (<2.0 mg/dL); URINE COLOR STRAW; URINE GLUCOSE (UA) NEGATIVE (NEGATIVE); URINE KETONE NEGATIVE (NEGATIVE); URINE LEUK ESTERASE NEGATIVE (NEGATIVE); URINE NITRITE NEGATIVE (NEGATIVE); URINE PROTEIN NEGATIVE (NEGATIVE); URINE UROBILINOGEN NEGATIVE mg/dL (0.2-1.0)
[2018-06-20 12:12] LABS: ALBUMIN 3.9 g/dl (3.4-5.0); ALK PHOS 94 U/L (45-117); ANION GAP 8 (8-16); BILIRUBIN,TOTAL 0.8 mg/dL (0.2-1.0); BLOOD UREA NITROGEN 11 mg/dL (7-18); CALCIUM 8.9 mg/dL (8.5-10.1); CHLORIDE 108 mmol/L (98-107); CHOLESTEROL 186 mg/dL (50-200); CO2 26 mmol/L (21-32); CREATININE 1.1 mg/dL (0.55-1.02); GLUCOSE,RANDOM 98 mg/dL (74-106); HDL CHOLESTEROL 40 mg/dL (40-60); SGOT/AST 15 U/L (15-37); SGPT/ALT 17 U/L (12-78); SODIUM 142 mmol/L (136-145); TOT PROT 7.3 g/dl (6.4-8.2); TRIGLYCERIDES 97 mg/dL (35-160)
--- NOTE | 2018-06-20 14:25 | CON.CARD ---
Consult Consult Specialty:: Cardiology Referred by:: Dr Btaes Reason for Consultation:: CV A, elevated troponin - History of Present Illness Chief Complaint: fall, cva History of Present Illness: 87 year-old woman with a PMHx of HTN, HLD, aortic aneursym s/p repair open [address] [facility], carotid stenosis, mild dementia. fibroids admitted with a fall and new right facial droop, right arm and leg weakness. she is unable to give a history. CT head negative no fractures on xrays. Not a candidate for tPa due to late presentation per neuro. Noted with elevated troponin. Echo 06/29/2017 showed mild LV dilatation with discrete septal hypertrophy. Moderate septal hypokinesis and mild other wall hypokinesis. Low-normal LV systolic function. LVEF = 50%. 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: Dementia Cardio/Vascular: Yes: Aneurysm (AAA), HTN, Hyperlipdemia, Other Musculoskeletal: Yes: Osteoarthritis Endocrine: Yes: Hypothyroidism - Alcohol/Substance Use Hx Alcohol Use: No - Smoking History Smoking history: Never smoked Have you smoked in the past 12 months: No Home Medications - Allergies Allergies/Adverse Reactions: Allergies Allergy/AdvReac Type Severity Reaction Status Date / Time nifedipine [From Procardia] Allergy Verified 06/20/18 10:51 - Home Medications Home Medications: Ambulatory Orders Cholecalciferol (Vitamin D3) [Vitamin D3] 1,000 unit PO DAILY 06/27/17 Levothyroxine [Synthroid -] 75 mcg PO DAILY 06/27/17 Ciprofloxacin [Cipro (Restricted To Id)] 250 mg PO BID 06/20/18 Metoprolol Succinate [Toprol XL -] 12.5 mg PO DAILY 06/20/18 Family Disease History - Family Disease History Family History: Unable to Obtain (oms) Review of Systems Unable to obtain ROS, reason: oms Vital Signs: Vital Signs Temperature 98.4 F 06/20/18 10:48 Pulse Rate 72 06/20/18 11:22 Respiratory Rate 24 06/20/18 11:22 Blood Pressure 187/91 06/20/18 11:22 O2 Sat by Pulse Oximetry (%) 95 06/20/18 11:56 Constitutional: Yes: No Distress, Calm Eyes: Yes: EOM Intact HENT: Yes: Atraumatic, Normocephalic Neck: Yes: Trachea Midline Respiratory: Yes: CTA Bilaterally Gastrointestinal: Yes: Normal Bowel Sounds, Soft Cardiovascular: Yes: Regular Rate and Rhythm JVD: No Carotid Bruit: No PMI: Non-Displaced Heart Sounds: Yes: S1, S2 Musculoskeletal: Yes: WNL Extremities: Yes: WNL Edema: No Peripheral Pulses WNL: Yes Neurological: Yes: Facial Droop (right), Weakness (rt arm and leg), Other - Other Data Labs, Other Data: CBC, BMP 06/20/18 11:00 06/20/18 11:00 INR, PTT INR 1.07 (0.83-1.09) 06/20/18 11:00 Troponin, BNP 06/20/18 11:00 Troponin I 0.22 H Troponin, BNP 06/20/18 11:00 Troponin I 0.22 H Imaging - Results Chest X-ray: Report Reviewed (sheree) X-ray: Report Reviewed (no fracture.) Cat Scan: Report Reviewed (no acute CVA) EKG: Report Reviewed (nsr lbbb) Problem List - Problems (1) Cerebrovascular accident (CVA) Assessment/Plan: workup per neuro. Repeat echo. Admit telemetry. Needs event monitor on discharge. Possible ILR in the future. AC/antiplatelet therapy per neurology. needs MRI/A, history of carotid stenosis. Code(s): I63.9 - CEREBRAL INFARCTION, UNSPECIFIED Qualifiers: CVA mechanism: unspecified Qualified Code(s): I63.9 - Cerebral infarction, unspecified (2) Elevated troponin Assessment/Plan: This is a nonischemic pattern, seen in this patient in the past during acute illness. Often also seen during CVA. Echo ordered. Code(s): R74.8 - ABNORMAL LEVELS OF OTHER SERUM ENZYMES
[2018-06-20 15:34] LABS: ACANTHOCYTES 0; ANISOCYTOSIS 0; HELMET CELLS 0; HOWELL-JOLLY BODIES 0; MACROCYTOSIS 0; OVALOCYTE 0; PLATELET ESTIMATE DECREASED; ROULEAU 0; SICKELED CELLS 0; TARGET CELLS 0; TEAR DROP CELLS 0; TOXIC GRANULATION 0
--- NOTE | 2018-06-20 16:39 | ECHO ---
Name: CHELITA REYES Exam:Adult Echocardiogram Study Date: 06/20/2018 03:42 PM Age: 88 yrs Reason For Study: CVA Height: 65 in Weight: 158 lb BSA: 1.8 m2 MMode/2D Measurements & Calculations IVSd: 1.1 cm Ao root diam: 3.5 cm LVIDd: 5.0 cm LA dimension: 4.7 cm LVIDs: 3.4 cm LVPWd: 1.0 cm EDV(Teich): 116.2 ml TAPSE: 2.6 cm ESV(Teich): 48.4 ml RV S Tyree: 13.5 cm/sec Doppler Measurements & Calculations MV E max tyree: 91.9 cm/sec Ao V2 max: 147.7 cm/sec MV A max tyree: 25.4 cm/sec Ao max P.7 mmHg MV E/A: 3.6 Ao V2 mean: 101.3 cm/sec MV dec time: 0.17 sec Ao mean P.7 mmHg Ao V2 VTI: 27.8 cm AI P1/2t: 555.4 msec AI max tyree: 362.7 cm/sec LV V1 max P.8 mmHg AI max P.7 mmHg LV V1 mean P.3 mmHg LV V1 max: 97.7 cm/sec AI dec slope: 191.3 cm/sec2 LV V1 mean: 48.5 cm/sec LV V1 VTI: 14.5 cm MR max tyree: 445.9 cm/sec TR max tyree: 211.7 cm/sec MR max P.5 mmHg TR max P.4 mmHg PI end-d tyree: 155.6 cm/sec Med Peak E' Tyree: 3.0 cm/sec Med E/e': 30.4 Lat Peak E' Tyree: 2.9 cm/sec Lat E/e': 31.4 Procedure A complete two-dimensional transthoracic echocardiogram was performed (2D, M-mode, Doppler and color flow Doppler). Left Ventricle The left ventricle is normal in size. Ejection Fraction = 55%. The transmitral spectral Doppler flow pattern is suggestive of impaired LV relaxation. Septal motion is consistent with conduction abnormality. The re is inferior wall mild hypokinesis. Right Ventricle The right ventricle is normal in size and function. Atria The left atrium is mildly dilated. Right atrial size is normal. Mitral Valve There is mild to moderate mitral annular calcification. There is mild to moderate mitral regurgitatio n. Tricuspid Valve The tricuspid valve is not well visualized, but is grossly normal. There is mild tricuspid regurgitat ion. Aortic Valve There is mild aortic sclerosis.;. Moderate aortic regurgitation. Pulmonic Valve The pulmonic valve is not well seen, but is grossly normal. Mild pulmonic valvular regurgitation. Great Vessels The aortic root is normal size. Normal aortic arch, descending and ascending aorta. Pericardium/Pleura There is no pericardial effusion. There is no pleural effusion. Interpretation Summary The left ventricle is normal in size. Septal motion is consistent with conduction abnormality. Ejection Fraction = 55%. The transmitral spectral Doppler flow pattern is suggestive of impaired LV relaxation. There is mild aortic sclerosis.; There is inferior wall mild hypokinesis. The right ventricle is normal in size and function. The left atrium is mildly dilated. There is mild to moderate mitral annular calcification. There is mild to moderate mitral regurgitation. There is mild tricuspid regurgitation. Moderate aortic regurgitation. Mild pulmonic valvular regurgitation. MD Jj Hansen 06/20/2018 04:38 PM
[2018-06-20] MEDS: D5-1/2NS+20 MEQ KCL - 20 MEQ/1,000 ML INFUS.BAG IV SCH (17:50)
--- NOTE | 2018-06-20 18:09 | HP ---
Admitting History and Physical - Admission History of Present Illness: 88 year old female from home, with a significant PMH of HTN, HLD, aortic aneurysm s/p repair,Carotd Stenosis mild dementia, fibroids who presents to the emergency department via EMS with AMS and right sided facial droop since this morning. As per the patients daughter, she reports family heard a thump around 9:00 am while getting ready for work and went upstairs to find the patient on the floor. She states the patient was noted to be more confused than baseline and have a right sided facial droop. She states the patient is normally able to follow commands but this morning was unable to. She reports the patients last known well at approx 6:50 am this morning. The daughter also reports the patient is currently on Cipro for a UTI. The patients primary language is [place] with the daughter at bedside assisting with translation. She denies any recent fever, chills, nausea or vomit. Denies any recent complaints of headache , chest pain, palpitations, lightheadedness or shortness of breath. Denies any recent constipation, diarrhea, melena or hematochezia. - Past Medical History [employer] CONSULTANT: Yes: Dementia Cardiovascular: Yes: Aneurysm (AAA), HTN, Hyperlipdemia, Other (carotid stenosis ) Heme/Onc: Yes: B12 Deficiency Musculoskeletal: Yes: Osteoarthritis Endocrine: Yes: Hypothyroidism - Past Surgical History Past Surgical History: Yes: AAA Repair - Smoking History Smoking history: Never smoked Have you smoked in the past 12 months: No - Alcohol/Substance Use Hx Alcohol Use: No Home Medications - Allergies Allergies/Adverse Reactions: Allergies Allergy/AdvReac Type Severity Reaction Status Date / Time nifedipine [From Procardia] Allergy Verified 06/20/18 10:51 - Home Medications Home Medications: Ambulatory Orders Cholecalciferol (Vitamin D3) [Vitamin D3] 1,000 unit PO DAILY 06/27/17 Levothyroxine [Synthroid -] 75 mcg PO DAILY 06/27/17 Ciprofloxacin [Cipro (Restricted To Id)] 250 mg PO BID 06/20/18 Metoprolol Succinate [Toprol XL -] 12.5 mg PO DAILY 06/20/18 Review of Systems - Review of Systems Constitutional: reports: Weakness. denies: Fever Respiratory: reports: No Symptoms Gastrointestinal: reports: No Symptoms Genitourinary: reports: No Symptoms Neurological: reports: Change in Speech, Confusion, Unsteady Gait, Weakness, Other (facial droop) Physical Examination Vital Signs: Vital Signs Temperature 98.4 F 06/20/18 10:48 Pulse Rate 77 06/20/18 17:54 Respiratory Rate 20 06/20/18 17:54 Blood Pressure 182/97 06/20/18 17:54 O2 Sat by Pulse Oximetry (%) 95 06/20/18 11:56 Neck: Yes: Supple Cardiovascular: Yes: Murmur, S1, S2 Respiratory: Yes: Regular, CTA Bilaterally Gastrointestinal: Yes: Normal Bowel Sounds, Soft. No: Tenderness Edema: No Neurological: Yes: Alert, Confusion, Dysarthria, Facial Droop (rt), Weakness ( right side) Labs: CBC, BMP 06/20/18 11:00 06/20/18 11:00 Imaging - Results Cat Scan: Report Reviewed Problem List - Problems (1) Cerebrovascular accident (CVA) Assessment/Plan: -presentation c/w acute cva -mri -carotid duplex -npo -neuro -swallow eval -pt Code(s): I63.9 - CEREBRAL INFARCTION, UNSPECIFIED Qualifiers: CVA mechanism: unspecified Qualified Code(s): I63.9 - Cerebral infarction, unspecified (2) Elevated troponin Assessment/Plan: -cardio on board -follow level Code(s): R74.8 - ABNORMAL LEVELS OF OTHER SERUM ENZYMES (3) Hypothyroid Assessment/Plan: -check tsh Code(s): E03.9 - HYPOTHYROIDISM, UNSPECIFIED (4) Urinary tract infection Assessment/Plan: -ua and uc Code(s): N39.0 - URINARY TRACT INFECTION, SITE NOT SPECIFIED Qualifiers: Urinary tract infection type: site unspecified Hematuria presence: without hematuria Qualified Code(s): N39.0 - Urinary tract infection, site not specified
--- NOTE | 2018-06-20 21:02 | CONSULT ---
Consult - text type - Consultation Consultation Note: NEUDROLOGY CONSULTATION is greatly appreciated: This 88 yo woman lives with her daughter who is at the bedside and gives recent history. PMH sig for HTN, Chol, hypothyroidism, ASVD, S/P repair of AAA, B12 deficiency and dementia. Seen by me 06/30/17 in consulatation for increased confusion associated with UTI. Patient was very confused c/w fairly advanced dementia and had significant gait dysfunction at the time. Her daughter describes her at home as forgetful and ambulating independently. Early this AM, patient was assisted to the bathroom and returned to bed. At 9 AM family was alerted by a fall and found patient on the floor besides the bed with right sided weakness and loss of speech comprehension. Her daughter notes increased right sided movt's during the day. In ER: CT of head (reviewed) shows diffuse atrophy (L>R) without traumatic lesions or acute stroke MRI of brain (reviewed) is degraded by motion artifact but shows diffuse, chronic, white matter microvascular changes. FAWN: Neck supple. No bruits. Cor reg. NEURO: Awake, alert. Follows no commands No gaze deviation. Right field cut to threat. Mild right facial Right hemiparesis (Arm 2/5, leg 3/5) with right leg resting everted posture. Right Babinski. Grimaces and withdraws to pinch on right. IMP: Acute left cerebral dysfunction c/w acute CVA. SUGGEST: Admit to monitored bed. NPO. Keep HOB elevated to 30 degrees. Cardiology consultation and R/o MT. PT eval and Bedside PT. Thank you very much, Andriy Godfrey MD
[2018-06-20] MEDS: HEPARIN NA (PORCINE) 5,000 UNITS/ML 1ML VIAL SQ SCH (22:50)
[2018-06-21 06:34] LABS: BASO % 0.4 % (0-2.0); EOS % 0.3 % (0-4.5); HEMATOCRIT 37.6 % (32.4-45.2); HEMOGLOBIN 12.8 GM/dL (10.7-15.3); LYMPH % 31.9 % (8-40); MEAN CELL VOLUME 85.2 fl (80-96); MEAN PLT VOLUME 9.6 fl (7.5-11.1); MONO % 26.2 % (3.8-10.2); NEUT % 41.2 % (42.8-82.8); PLATELET COUNT 138 K/MM3 (134-434); RBC 4.41 M/mm3 (3.60-5.2); RDW 14.5 % (11.6-15.6); WHITE BLOOD COUNT 5.9 K/mm3 (4.0-10.0)
[2018-06-21 07:13] LABS: ALBUMIN 3.7 g/dl (3.4-5.0); ANION GAP 10 (8-16); BLOOD UREA NITROGEN 8 mg/dL (7-18); CALCIUM 8.4 mg/dL (8.5-10.1); CHLORIDE 110 mmol/L (98-107); CO2 24 mmol/L (21-32); GLUCOSE,RANDOM 94 mg/dL (74-106); MAGNESIUM 2.2 mg/dL (1.8-2.4); POTASSIUM 3.7 mmol/L (3.5-5.1); SODIUM 144 mmol/L (136-145)
[2018-06-21 07:21] LABS: ALK PHOS 91 U/L (45-117); BILIRUBIN,TOTAL 1.3 mg/dL (0.2-1.0); CREATININE 0.8 mg/dL (0.55-1.02); SGOT/AST 16 U/L (15-37); SGPT/ALT 14 U/L (12-78); TOT PROT 6.8 g/dl (6.4-8.2)
--- NOTE | 2018-06-21 08:05 | PN ---
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, Physician History of Present Illness: more awake - Current Medication List Current Medications: Active Medications Aspirin (Asa -) 300 mg RC DAILY [facility] Heparin Sodium (Porcine) (Heparin -) 5,000 unit SQ BID [facility] Last Admin: 06/20/18 22:50 Dose: 5,000 unit Sodium Chloride (Normal Saline -) 1,000 mls @ 42 mls/hr IV ASDIR [facility] Last Admin: 06/20/18 11:00 Dose: 42 mls/hr Potassium Chloride/Dextrose/Sod Cl (D5-1/2ns+20 Meq Kcl -) 20 meq in 1,000 mls @ 75 mls/hr IV ASDIR [facility] Last Admin: 06/20/18 17:50 Dose: 75 mls/hr - Objective Vital Signs: Vital Signs Temperature 97.1 F L 06/21/18 05:47 Pulse Rate 82 06/21/18 05:47 Respiratory Rate 18 06/21/18 05:47 Blood Pressure 156/92 06/21/18 05:47 O2 Sat by Pulse Oximetry (%) 93 L 06/21/18 05:00 Cardiovascular: Yes: S1, S2 Respiratory: Yes: CTA Bilaterally Gastrointestinal: Yes: Normal Bowel Sounds, Soft Edema: No Neurological: Yes: Alert, Oriented, Facial Droop, Weakness (rt side---less than yesterday) Labs: CBC, BMP 06/21/18 06:00 06/21/18 06:00 INR, PTT INR 1.07 (0.83-1.09) 06/20/18 11:00 Problem List - Problems (1) Cerebrovascular accident (CVA) Assessment/Plan: -presentation c/w acute cva -mri -carotid duplex -npo -neuro -swallow eval -pt Code(s): I63.9 - CEREBRAL INFARCTION, UNSPECIFIED Qualifiers: CVA mechanism: unspecified Qualified Code(s): I63.9 - Cerebral infarction, unspecified (2) Elevated troponin Assessment/Plan: -cardio on board -follow level Code(s): R74.8 - ABNORMAL LEVELS OF OTHER SERUM ENZYMES (3) Hypothyroid Assessment/Plan: -check tsh Code(s): E03.9 - HYPOTHYROIDISM, UNSPECIFIED (4) Urinary tract infection Assessment/Plan: -ua and uc Code(s): N39.0 - URINARY TRACT INFECTION, SITE NOT SPECIFIED Qualifiers: Urinary tract infection type: site unspecified Hematuria presence: without hematuria Qualified Code(s): N39.0 - Urinary tract infection, site not specified
--- NOTE | 2018-06-21 09:59 | CONSULT ---
<Maik Guerrier P - Last Filed: 06/21/18 11:37> - Consultation REQUESTING PROVIDER: Vascular Surgery - Frank Seymour CONSULT REQUEST: We have been asked to surgically evaluate this patient for carotid artery stenosis PCP: Cici Bates HPI: Called to eval 88 yo female with PMHx as noted below. Patient not a reliable source of information due to her dementia. Information obtained from current notes (Neuro, Cardio, ER, Radiologic imaging). Per notes, ~9AM family heard a noise in the bedroom where they found patient lying on the ground next to her bed. No apparent LOC. Unwitnessed. According to notes, she wasn't able to speak, displayed right sided weakness. Per daughter, mother appears to be more confused than usual. Patient normally able to follow commands but this morning was unable to. Brought to [facility] ED for further evaluation. Admitted with a fall and new right facial droop, right arm and leg weakness. While in the ED, she had a Head CT:neg for fracture, hemorrhage or space occupying lesions, diffuse atrophy (L>R). Also had MRI of brain (reviewed) is degraded by motion artifact but shows diffuse, chronic, white matter microvascular changes. Carotid duplex: extensive atherosclerotic plaque identified at carotid bifurcation on the right. Left side unremarkable. Up until recent events patient ambulated at home independently. Currently, resting comfortably without complaint. Very pleasenat. Smiling. Doesn't follow commands. Patient recently seen/evaluated by Dr. Oden on 06/30/17 for increased confusion...advanced dementia and had significant gait dysfunction at the time. Not a candidate for tPa due to late presentation per Neuro. PMHx: Dementia, ASVD, HTN, Hyperlipdemia, OA, Hypothyroidism, carotid stenosis, Fibroids, B12 deficiency, UTI PSHx: AAA open repair [address] [facility] Meds Cholecalciferol (Vitamin D3) [Vitamin D3] 1,000 unit PO DAILY Levothyroxine [Synthroid -] 75 mcg PO DAILY Ciprofloxacin [Cipro (Restricted To Id)] 250 mg PO BID Metoprolol Succinate [Toprol XL -] 12.5 mg PO DAILY Allergies: Nifedipine ROS: All systems reviewed and considered negative except for what's contained in HPI. PE: GENERAL: Awake, alert, nad, doesn't follow commands HEAD: NC. AT HEENT: PERRL, sclera anicteric, conjunctiva clear. No deviation. Mild right sided facial droop NECK: Normal ROM, supple without lymphadenopathy, JVD, or masses. LUNGS: CTA bilat HEART: RRR ABD: Soft, NT, ND UE: 2+ pulses, warm, well-perfused. No cyanosis. Cap refill <2 seconds. No peripheral edema. LE: 2+ pulses, warm, well-perfused. No calf tenderness. No peripheral edema. NEURO: RUE hemiparesis 2/5, RLE 3/5. + response to painful stimuli SKIN: Warm, dry Last Vital Signs Temp Pulse Resp BP Pulse Ox 97.1 F L 82 18 156/92 93 L 06/21/18 05:47 06/21/18 05:47 06/21/18 05:47 06/21/18 05:47 06/21/18 05:00 Blood Type Blood Type AB NEGATIVE 06/20/18 10:38 INR, PTT INR 1.07 (0.83-1.09) 06/20/18 11:00 CBC, BMP 06/21/18 06:00 06/21/18 06:00 Hepatic Panel Total Bilirubin 1.3 mg/dL (0.2-1.0) H 06/21/18 06:00 AST 16 U/L (15-37) 06/21/18 06:00 ALT 14 U/L (12-78) 06/21/18 06:00 Alkaline Phosphatase 91 U/L (45-117) 06/21/18 06:00 Albumin 3.7 g/dl (3.4-5.0) 06/21/18 06:00 Urine Test Results Urine Color Straw 06/20/18 11:25 Urine Appearance Clear 06/20/18 11:25 Urine pH 7.0 (5.0-8.0) 06/20/18 11:25 Ur Specific [place] 1.008 (1.001-1.035) 06/20/18 11:25 Urine Protein Negative (NEGATIVE) 06/20/18 11:25 Urine Glucose (UA) Negative (NEGATIVE) 06/20/18 11:25 Urine Ketones Negative (NEGATIVE) 06/20/18 11:25 Urine Blood Negative (NEGATIVE) 06/20/18 11:25 Urine Nitrite Negative (NEGATIVE) 06/20/18 11:25 Urine Bilirubin Negative (<2.0 mg/dL) 06/20/18 11:25 Ur Leukocyte Esterase Negative (NEGATIVE) 06/20/18 11:25 Troponin, BNP 06/20/18 06/20/18 06/21/18 11:00 17:20 06:00 Troponin I 0.22 H 0.24 H 0.31 H Problem List - Problems (1) Cerebrovascular accident (CVA) Assessment/Plan: 88yo female admitted s/p CVA. Currently, resting comfortably. Smiling and tries to engage but no comprehension (baseline). Per Neurology consult, patient isn't a candidate for tPa due to late presentation. Continue medical management. No further vascular imaging needed per Dr. Seymour. Code(s): I63.9 - CEREBRAL INFARCTION, UNSPECIFIED Qualifiers: CVA mechanism: unspecified Qualified Code(s): I63.9 - Cerebral infarction, unspecified (2) Dementia Code(s): F03.90 - UNSPECIFIED DEMENTIA WITHOUT BEHAVIORAL DISTURBANCE Visit type - Case Type Case Type: ED Admission - Emergency Emergency Visit: Yes ED Registration Date: 06/20/18 Care time: The patient presented to the Emergency Department on the above date and was hospitalized for further evaluation of their emergent condition. - New patient This patient is new to me today: Yes Date on this admission: 06/21/18 <Frank Seymour - Last Filed: 06/21/18 23:34> - Consultation REQUESTING PROVIDER: CONSULT REQUEST: We have been asked to surgically evaluate this patient for ( specify). PCP:Cici Bates HISTORY OF PRESENT ILLNESS: PMHx: PSHx: Home Medications Medication Instructions Recorded Cholecalciferol (Vitamin D3) 1,000 unit PO DAILY 06/27/17 [Vitamin D3] Levothyroxine [Synthroid -] 75 mcg PO DAILY 06/27/17 Ciprofloxacin [Cipro (Restricted 250 mg PO BID 06/20/18 To Id)] Metoprolol Succinate [Toprol XL -] 12.5 mg PO DAILY 06/20/18 Allergies Allergy/AdvReac Type Severity Reaction Status Date / Time nifedipine [From Procardia] Allergy Verified 06/20/18 10:51 REVIEW OF SYSTEMS: CONSTITUTIONAL: Absent: fever, chills, diaphoresis, generalized weakness, malaise, loss of appetite, weight change CARDIOVASCULAR: Absent: chest pain, syncope, palpitations, irregular heart rate, lightheadedness , peripheral edema RESPIRATORY: Absent: cough, shortness of breath, dyspnea with exertion, wheezing, stridor, hemoptysis GASTROINTESTINAL: Absent: abdominal pain, abdominal distension, nausea, vomiting, diarrhea, constipation, melena, hematochezia GENITOURINARY: Absent: dysuria, frequency, urgency, hesitancy, hematuria, flank pain, genital pain MUSCULOSKELETAL: Absent: myalgia, arthralgia, joint swelling, back pain, neck pain SKIN: Absent: rash, itching, pallor HEMATOLOGIC/IMMUNOLOGIC: Absent: easy bleeding, easy bruising, lymphadenopathy NEUROLOGIC: Absent: headache, focal weakness, paresthesias, dizziness, unsteady gait, seizure, mental status changes, bladder or bowel incontinence PSYCHIATRIC: Absent: anxiety, depression, suicidal or homicidal ideation, hallucinations. PHYSICAL EXAM: GENERAL: Awake, alert, and fully oriented, in no acute distress. HEAD: Normal with no signs of trauma. EYES: PERRL, sclera anicteric, conjunctiva clear. NECK: Normal ROM, supple without lymphadenopathy, JVD, or masses. LUNGS: Clear to auscultation bilat anteriorly. No wheezes, and no crackles. No accessory muscle use. HEART: Regular rate and rhythm. No murmurs ABDOMEN: Soft, nontender, not distended, normoactive bowel sounds, no guarding, no rebound, no masses. No organomegaly. MUSCULOSKELETAL: Normal ROM at all joints. No bony deformities or tenderness. No CVA tenderness. UPPER EXTREMITIES: 2+ pulses, warm, well-perfused. No cyanosis. Cap refill <2 seconds. No peripheral edema. LOWER EXTREMITIES: 2+ pulses, warm, well-perfused. No calf tenderness. No peripheral edema. NEUROLOGICAL: Normal speech, gait not observed. PSYCH: Cooperative. Good eye contact. Appropriate mood and affect. SKIN: Warm, dry, normal turgor, no rashes or lesions noted. Vital Signs Temperature 98.9 F 06/21/18 18:35 Pulse Rate 78 06/21/18 18:35 Respiratory Rate 18 06/21/18 18:35 Blood Pressure 129/85 06/21/18 18:35 O2 Sat by Pulse Oximetry (%) 96 06/21/18 10:00 Lab Results WBC 5.9 K/mm3 (4.0-10.0) 06/21/18 06:00 RBC 4.41 M/mm3 (3.60-5.2) 06/21/18 06:00 Hgb 12.8 GM/dL (10.7-15.3) 06/21/18 06:00 Hct 37.6 % (32.4-45.2) 06/21/18 06:00 MCV 85.2 fl (80-96) 06/21/18 06:00 MCHC 34.0 g/dl (32.0-36.0) 06/21/18 06:00 RDW 14.5 % (11.6-15.6) 06/21/18 06:00 Plt Count 138 K/MM3 (134-434) 06/21/18 06:00 Sodium 144 mmol/L (136-145) 06/21/18 06:00 Potassium 3.7 mmol/L (3.5-5.1) 06/21/18 06:00 Chloride 110 mmol/L (98-107) H 06/21/18 06:00 Carbon Dioxide 24 mmol/L (21-32) 06/21/18 06:00 Anion Gap 10 (8-16) 06/21/18 06:00 BUN 8 mg/dL (7-18) 06/21/18 06:00 Creatinine 0.8 mg/dL (0.55-1.02) 06/21/18 06:00 Random Glucose 94 mg/dL (74-106) 06/21/18 06:00 Calcium 8.4 mg/dL (8.5-10.1) L 06/21/18 06:00 Blood Type AB NEGATIVE 06/20/18 10:38 Antibody Screen Negative 06/20/18 10:38 INR 1.07 (0.83-1.09) 06/20/18 11:00 History reviewed and patient examined. New left cerebral stroke with right hemiparesis in patient with underlying chronic dementia. Carotid studies do not show ipsilateral stenosis. No vascular surgery intervention indicated for an asymptomatic right carotid stenosis.
--- NOTE | 2018-06-21 10:38 | EKG ---
Test Reason : Blood Pressure : / mmHG Vent. Rate : 071 BPM Atrial Rate : 071 BPM P-R Int : 198 ms QRS Dur : 128 ms QT Int : 454 ms P-R-T Axes : 026 -56 119 degrees QTc Int : 493 ms NORMAL SINUS RHYTHM LEFT AXIS DEVIATION LEFT VENTRICULAR HYPERTROPHY WITH QRS WIDENING AND REPOLARIZATION ABNORMALITY CANNOT RULE OUT SEPTAL INFARCT (CITED ON OR BEFORE 22-AUG-2016) POSSIBLE LATERAL INFARCT (CITED ON OR BEFORE 28-JUN-2017) ABNORMAL ECG WHEN COMPARED WITH ECG OF 28-JUN-2017 01:22, NO SIGNIFICANT CHANGE WAS FOUND Confirmed by ANA MARQUEZ MD ([id number]) on 06/21/2018 10:37:47 AM Referred By: Confirmed By:ANA MARQUEZ MD
[2018-06-21] MEDS: HEPARIN NA (PORCINE) 5,000 UNITS/ML 1ML VIAL SQ SCH ×2 (10:46→22:36)
[2018-06-21] MEDS: SODIUM CHLORIDE 1,000 ML IV SCH (10:46)
[2018-06-21] MEDS: ASPIRIN 300 MG SUPP.RECT RC SCH (10:47)
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
--- NOTE | 2018-06-21 14:31 | PN ---
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, Physician History of Present Illness: seen and examined today with daughter and granddaughter present. pt awake and alert, sitting in chair, still has weakness and confusion. no new complaints. - Current Medication List Current Medications: Active Medications Aspirin (Asa -) 300 mg RC DAILY [facility] Last Admin: 06/21/18 10:47 Dose: 300 mg Atorvastatin Calcium (Lipitor -) 40 mg PO HS [facility] Heparin Sodium (Porcine) (Heparin -) 5,000 unit SQ BID [facility] Last Admin: 06/21/18 10:46 Dose: 5,000 unit Sodium Chloride (Normal Saline -) 1,000 mls @ 42 mls/hr IV ASDIR [facility] Last Admin: 06/21/18 10:46 Dose: Not Given Potassium Chloride/Dextrose/Sod Cl (D5-1/2ns+20 Meq Kcl -) 20 meq in 1,000 mls @ 75 mls/hr IV ASDIR [facility] Last Admin: 06/20/18 17:50 Dose: 75 mls/hr Levothyroxine Sodium (Synthroid -) 75 mcg PO AM [facility] Metoprolol Succinate (Toprol Xl -) 12.5 mg PO DAILY [facility] - Objective Vital Signs: Vital Signs Temperature 98.2 F 06/21/18 10:00 Pulse Rate 73 06/21/18 10:00 Respiratory Rate 18 06/21/18 10:00 Blood Pressure 154/96 06/21/18 10:00 O2 Sat by Pulse Oximetry (%) 96 06/21/18 10:00 Constitutional: Yes: No Distress, Calm Eyes: Yes: Conjunctiva Clear, EOM Intact, PERRL HENT: Yes: Atraumatic, Normocephalic Neck: Yes: Supple, Trachea Midline Cardiovascular: Yes: Regular Rate and Rhythm, S1, S2. No: Bradycardia, Tachycardia, Pulse Irregular, Bruit, JVD, Gallop, Murmur, Rub, S3, S4, Varicosities Respiratory: Yes: Regular, CTA Bilaterally. No: Rales, Rhonchi, SOB, Wheezes Gastrointestinal: Yes: Normal Bowel Sounds, Soft. No: Distention, Tenderness Musculoskeletal: Yes: Muscle Weakness Edema: No Peripheral Pulses WNL: Yes Peripheral Pulses: Left Doralis Pedis: 2+, Right Dorsalis Pedis: 2+ Neurological: Yes: Alert. No: Oriented Psychiatric: Yes: Alert. No: Oriented Labs: CBC, BMP 06/21/18 06:00 06/21/18 06:00 INR, PTT INR 1.07 (0.83-1.09) 06/20/18 11:00 - ....Imaging Chest X-ray: Report Reviewed, Image Reviewed EKG: Report Reviewed, Image Reviewed Other: Report Reviewed, Image Reviewed (tele-sinus michelle, nsr, brief likely psvt with aberrancy less likely nsvt) Assessment/Plan 87 year-old woman with a PMHx of HTN, HLD, aortic aneursym s/p repair open [address] [facility], carotid stenosis, mild dementia. fibroids admitted with a fall and new right facial droop, right arm and leg weakness. she is unable to give a history. Mild troponin elevation -with normal CK level and did not significantly trend up in the setting of a CVA -unlikely type I IN -trop likely secondary to CVA ECHO 06/20/18-overall normal LVEF with mild inferior wall hypokinesis, mild mr/tr , mod AR Echo 06/29/2017 showed mild LV dilatation with discrete septal hypertrophy. Moderate septal hypokinesis and mild other wall hypokinesis. Low-normal LV systolic function. LVEF = 50%. -no further ischemic work up needed at this time CVA -with carotid stenosis, known to family and pt has opted against surgery in the past -cont ASA and lipitor -cont toprol -HTN parameters as per neuro reccs -no afib or aflutter recorded on tele, brief episode what appears to be PSVT with aberrance -can have longer term event monitor as outpatient or consider ILR to evaluate for occult afib/aflutter -can monitor tele until discharge
[2018-06-21] MEDS: metoPROLOL SUCCINATE 25 MG TAB.SR.24H (FP) PO SCH (14:43)
--- NOTE | 2018-06-21 15:24 | EKG ---
Test Reason : Blood Pressure : / mmHG Vent. Rate : 090 BPM Atrial Rate : 090 BPM P-R Int : 216 ms QRS Dur : 122 ms QT Int : 412 ms P-R-T Axes : 051 -62 116 degrees QTc Int : 504 ms SINUS RHYTHM WITH 1ST DEGREE A-V BLOCK LEFT ANTERIOR FASCICULAR BLOCK LEFT VENTRICULAR HYPERTROPHY WITH QRS WIDENING AND REPOLARIZATION ABNORMALITY CANNOT RULE OUT SEPTAL INFARCT (CITED ON OR BEFORE 22-AUG-2016) ABNORMAL ECG WHEN COMPARED WITH ECG OF 20-JUN-2018 10:58, NO SIGNIFICANT CHANGE WAS FOUND Confirmed by ANA MARQUEZ MD ([id number]) on 06/21/2018 3:24:06 PM Referred By: SHAD SANCHEZ Confirmed By:ANA MARQUEZ MD
[2018-06-21 15:54] LABS: ACANTHOCYTES 0; ANISOCYTOSIS 0; HELMET CELLS 0; HOWELL-JOLLY BODIES 0; MACROCYTOSIS 0; OVALOCYTE 0; PLATELET ESTIMATE DECREASED; ROULEAU 0; SICKELED CELLS 0; TARGET CELLS 0; TEAR DROP CELLS 0; TOXIC GRANULATION 0
[2018-06-21] MEDS: D5-1/2NS+20 MEQ KCL - 20 MEQ/1,000 ML INFUS.BAG IV SCH (18:34)
[2018-06-21] MEDS: ATORVASTATIN CA 40 MG TABLET (FP) PO SCH (22:36)
[2018-06-22] MEDS: LEVOTHYROXINE NA 75 MCG TABLET (FP) PO SCH (06:22)
[2018-06-22] MEDS: D5-1/2NS+20 MEQ KCL - 20 MEQ/1,000 ML INFUS.BAG IV SCH ×2 (06:25→17:26)
--- NOTE | 2018-06-22 07:59 | PN ---
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, Physician History of Present Illness: more awake - Current Medication List Current Medications: Active Medications Aspirin (Asa -) 300 mg RC DAILY [facility] Last Admin: 06/21/18 10:47 Dose: 300 mg Atorvastatin Calcium (Lipitor -) 40 mg PO HS [facility] Last Admin: 06/21/18 22:36 Dose: 40 mg Heparin Sodium (Porcine) (Heparin -) 5,000 unit SQ BID [facility] Last Admin: 06/21/18 22:36 Dose: 5,000 unit Sodium Chloride (Normal Saline -) 1,000 mls @ 42 mls/hr IV ASDIR [facility] Last Admin: 06/21/18 10:46 Dose: Not Given Potassium Chloride/Dextrose/Sod Cl (D5-1/2ns+20 Meq Kcl -) 20 meq in 1,000 mls @ 75 mls/hr IV ASDIR [facility] Last Admin: 06/22/18 06:25 Dose: 75 mls/hr Levothyroxine Sodium (Synthroid -) 75 mcg PO AM [facility] Last Admin: 06/22/18 06:22 Dose: 75 mcg Metoprolol Succinate (Toprol Xl -) 12.5 mg PO DAILY [facility] Last Admin: 06/21/18 14:43 Dose: 12.5 mg - Objective Vital Signs: Vital Signs Temperature 98.1 F 06/22/18 06:00 Pulse Rate 66 06/22/18 06:00 Respiratory Rate 18 06/22/18 06:00 Blood Pressure 176/86 06/22/18 06:00 O2 Sat by Pulse Oximetry (%) 96 06/21/18 21:00 Cardiovascular: Yes: S1, S2 Respiratory: Yes: Regular, CTA Bilaterally Gastrointestinal: Yes: Normal Bowel Sounds, Soft Neurological: Yes: Alert, Confusion, Unsteady Gait, Weakness Labs: CBC, BMP 06/21/18 06:00 06/21/18 06:00 INR, PTT INR 1.07 (0.83-1.09) 06/20/18 11:00 Problem List - Problems (1) Cerebrovascular accident (CVA) Assessment/Plan: -presentation c/w acute cva -mri noted--artifact -carotid duplex noted--stenosis--vasc noted -diet as ordered -neuro appreciated -swallow eval -pt Code(s): I63.9 - CEREBRAL INFARCTION, UNSPECIFIED Qualifiers: CVA mechanism: unspecified Qualified Code(s): I63.9 - Cerebral infarction, unspecified (2) Elevated troponin Assessment/Plan: -cardio on board -follow level Code(s): R74.8 - ABNORMAL LEVELS OF OTHER SERUM ENZYMES (3) Hypothyroid Assessment/Plan: -check tsh Code(s): E03.9 - HYPOTHYROIDISM, UNSPECIFIED (4) Urinary tract infection Assessment/Plan: -ua and uc Code(s): N39.0 - URINARY TRACT INFECTION, SITE NOT SPECIFIED Qualifiers: Urinary tract infection type: site unspecified Hematuria presence: without hematuria Qualified Code(s): N39.0 - Urinary tract infection, site not specified
[2018-06-22] MEDS ORDERED: PT OWN MED DRAWER 7, Y5N ONE (08:55)
[2018-06-22 08:58] LABS: BASO % 0.7 % (0-2.0); EOS % 0.5 % (0-4.5); HEMATOCRIT 38.4 % (32.4-45.2); HEMOGLOBIN 12.9 GM/dL (10.7-15.3); LYMPH % 39.8 % (8-40); MCH 28.6 pg (25.7-33.7); MCHC 33.5 g/dl (32.0-36.0); MEAN CELL VOLUME 85.3 fl (80-96); MEAN PLT VOLUME 9.3 fl (7.5-11.1); MONO % 24.3 % (3.8-10.2); NEUT % 34.7 % (42.8-82.8); PLATELET COUNT 142 K/MM3 (134-434); RDW 14.3 % (11.6-15.6); WHITE BLOOD COUNT 5.3 K/mm3 (4.0-10.0)
[2018-06-22] MEDS: ASPIRIN 300 MG SUPP.RECT RC SCH (09:05)
[2018-06-22] MEDS: metoPROLOL SUCCINATE 25 MG TAB.SR.24H (FP) PO SCH (09:05)
[2018-06-22] MEDS: HEPARIN NA (PORCINE) 5,000 UNITS/ML 1ML VIAL SQ SCH ×2 (09:05→21:07)
[2018-06-22 09:30] LABS: ALBUMIN 3.7 g/dl (3.4-5.0); ANION GAP 11 (8-16); BILIRUBIN,TOTAL 1.2 mg/dL (0.2-1.0); BLOOD UREA NITROGEN 9 mg/dL (7-18); CALCIUM 8.7 mg/dL (8.5-10.1); CHLORIDE 109 mmol/L (98-107); CO2 24 mmol/L (21-32); GLUCOSE,RANDOM 98 mg/dL (74-106); SGOT/AST 18 U/L (15-37); SGPT/ALT 15 U/L (12-78); SODIUM 144 mmol/L (136-145); TOT PROT 6.9 g/dl (6.4-8.2)
[2018-06-22 09:33] LABS: ALK PHOS 86 U/L (45-117)
[2018-06-22 11:44] LABS: PLATELET ESTIMATE ADEQUATE
--- NOTE | 2018-06-22 12:37 | PN ---
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 Swallow reassessed.Impulsive intake with 3 oz water test. Throat clearing with thin liquid. Maintain diet as ordered at this time.
--- NOTE | 2018-06-22 14:26 | PN ---
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, Physician Chief Complaint: More alert tele brief atrial tachycardia. no afib. History of Present Illness: 7 year-old woman with a PMHx of HTN, HLD, aortic aneursym s/p repair open 2000 at [facility], carotid stenosis, mild dementia. fibroids admitted with a fall and new right facial droop, right arm and leg weakness. she is unable to give a history. Noted with mild troponin elevation. Also history of Carotid stenosis. ECHO 06/20/18-overall normal LVEF with mild inferior wall hypokinesis, mild mr/tr , mod AR Echo 06/29/2017 showed mild LV dilatation with discrete septal hypertrophy. Moderate septal hypokinesis and mild other wall hypokinesis. Low-normal LV systolic function. LVEF = 50%. Duplex severe right ICA stenosis. - Current Medication List Current Medications: Active Medications Aspirin (Asa -) 300 mg RC DAILY [facility] Last Admin: 06/22/18 09:05 Dose: 300 mg Atorvastatin Calcium (Lipitor -) 40 mg PO HS [facility] Last Admin: 06/21/18 22:36 Dose: 40 mg Heparin Sodium (Porcine) (Heparin -) 5,000 unit SQ BID [facility] Last Admin: 06/22/18 09:05 Dose: 5,000 unit Sodium Chloride (Normal Saline -) 1,000 mls @ 42 mls/hr IV ASDIR [facility] Last Admin: 06/21/18 10:46 Dose: Not Given Potassium Chloride/Dextrose/Sod Cl (D5-1/2ns+20 Meq Kcl -) 20 meq in 1,000 mls @ 75 mls/hr IV ASDIR [facility] Last Admin: 06/22/18 06:25 Dose: 75 mls/hr Levothyroxine Sodium (Synthroid -) 75 mcg PO AM [facility] Last Admin: 06/22/18 06:22 Dose: 75 mcg Metoprolol Succinate (Toprol Xl -) 12.5 mg PO DAILY [facility] Last Admin: 06/22/18 09:05 Dose: 12.5 mg - Objective Vital Signs: Vital Signs Temperature 98.2 F 06/22/18 09:01 Pulse Rate 69 06/22/18 09:01 Respiratory Rate 18 06/22/18 09:01 Blood Pressure 139/86 06/22/18 09:01 O2 Sat by Pulse Oximetry (%) 96 06/22/18 09:01 Constitutional: Yes: No Distress Eyes: Yes: EOM Intact HENT: Yes: Normocephalic Neck: Yes: Trachea Midline Cardiovascular: Yes: Regular Rate and Rhythm Respiratory: Yes: CTA Bilaterally Gastrointestinal: Yes: Normal Bowel Sounds, Soft Extremities: Yes: WNL Edema: No Peripheral Pulses WNL: Yes Labs: CBC, BMP 06/22/18 08:45 06/22/18 08:45 INR, PTT INR 1.07 (0.83-1.09) 06/20/18 11:00 Problem List - Problems (1) Cerebrovascular accident (CVA) Code(s): I63.9 - CEREBRAL INFARCTION, UNSPECIFIED Qualifiers: CVA mechanism: unspecified Qualified Code(s): I63.9 - Cerebral infarction, unspecified (2) Elevated troponin Code(s): R74.8 - ABNORMAL LEVELS OF OTHER SERUM ENZYMES Assessment/Plan Mild troponin elevation -with normal CK level and did not significantly trend up in the setting of a CVA -unlikely type I AK -trop likely secondary to CVA ECHO 06/20/18-overall normal LVEF with mild inferior wall hypokinesis, mild mr/tr , mod AR Echo 06/29/2017 showed mild LV dilatation with discrete septal hypertrophy. Moderate septal hypokinesis and mild other wall hypokinesis. Low-normal LV systolic function. LVEF = 50%. -no further ischemic work up needed at this time CVA -with carotid stenosis, known to family and pt has opted against surgery in the past -cont ASA and lipitor -cont toprol -HTN parameters as per neuro reccs -no afib or aflutter recorded on tele, brief episode what appears to be PSVT with aberrance -can have longer term event monitor as outpatient or consider ILR to evaluate for occult afib/aflutter -can monitor tele until discharge.
[2018-06-22] MEDS: SODIUM CHLORIDE 1,000 ML IV SCH (17:25)
[2018-06-22] MEDS: ATORVASTATIN CA 40 MG TABLET (FP) PO SCH (21:07)
[2018-06-23] MEDS: LEVOTHYROXINE NA 75 MCG TABLET (FP) PO SCH (06:46)
--- NOTE | 2018-06-23 07:56 | PN ---
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, Physician History of Present Illness: more awake - Current Medication List Current Medications: Active Medications Aspirin (Asa -) 300 mg RC DAILY [facility] Last Admin: 06/22/18 09:05 Dose: 300 mg Atorvastatin Calcium (Lipitor -) 40 mg PO HS [facility] Last Admin: 06/22/18 21:07 Dose: 40 mg Heparin Sodium (Porcine) (Heparin -) 5,000 unit SQ BID [facility] Last Admin: 06/22/18 21:07 Dose: 5,000 unit Potassium Chloride/Dextrose/Sod Cl (D5-1/2ns+20 Meq Kcl -) 20 meq in 1,000 mls @ 75 mls/hr IV ASDIR [facility] Last Admin: 06/22/18 17:26 Dose: Not Given Levothyroxine Sodium (Synthroid -) 75 mcg PO AM [facility] Last Admin: 06/23/18 06:46 Dose: 75 mcg Metoprolol Succinate (Toprol Xl -) 12.5 mg PO DAILY [facility] Last Admin: 06/22/18 09:05 Dose: 12.5 mg - Objective Vital Signs: Vital Signs Temperature 98.0 F 06/23/18 06:00 Pulse Rate 61 06/23/18 06:00 Respiratory Rate 20 06/23/18 06:00 Blood Pressure 166/103 06/23/18 06:00 O2 Sat by Pulse Oximetry (%) 96 06/22/18 21:00 Cardiovascular: Yes: S1, S2 Respiratory: Yes: Regular, CTA Bilaterally Gastrointestinal: Yes: Normal Bowel Sounds, Soft Neurological: Yes: Alert, Confusion Labs: CBC, BMP 06/22/18 08:45 06/22/18 08:45 INR, PTT INR 1.07 (0.83-1.09) 06/20/18 11:00 Problem List - Problems (1) Cerebrovascular accident (CVA) Assessment/Plan: -presentation c/w acute cva -mri noted--artifact -carotid duplex noted--stenosis--vasc noted -diet as ordered -neuro appreciated -swallow eval -pt Code(s): I63.9 - CEREBRAL INFARCTION, UNSPECIFIED Qualifiers: CVA mechanism: unspecified Qualified Code(s): I63.9 - Cerebral infarction, unspecified (2) Elevated troponin Assessment/Plan: -cardio on board -follow level Code(s): R74.8 - ABNORMAL LEVELS OF OTHER SERUM ENZYMES (3) Hypothyroid Assessment/Plan: -check tsh Code(s): E03.9 - HYPOTHYROIDISM, UNSPECIFIED (4) Urinary tract infection Code(s): N39.0 - URINARY TRACT INFECTION, SITE NOT SPECIFIED Qualifiers: Hematuria presence: without hematuria Qualified Code(s): N39.0 - Urinary tract infection, site not specified
[2018-06-23] MEDS ORDERED: PT OWN MED DRAWER 7, Y5N ONE ×2 (09:53→10:27)
[2018-06-23] MEDS: HEPARIN NA (PORCINE) 5,000 UNITS/ML 1ML VIAL SQ SCH ×2 (10:00→21:02)
[2018-06-23] MEDS: metoPROLOL SUCCINATE 25 MG TAB.SR.24H (FP) PO SCH (10:00)
--- NOTE | 2018-06-23 10:39 | PN ---
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, Physician Chief Complaint: More alert tele no afib. History of Present Illness: 7 year-old woman with a PMHx of HTN, HLD, aortic aneursym s/p repair open 2000 at [facility], carotid stenosis, mild dementia. fibroids admitted with a fall and new right facial droop, right arm and leg weakness. she is unable to give a history. Noted with mild troponin elevation. Also history of Carotid stenosis. ECHO 06/20/18-overall normal LVEF with mild inferior wall hypokinesis, mild mr/tr , mod AR Echo 06/29/2017 showed mild LV dilatation with discrete septal hypertrophy. Moderate septal hypokinesis and mild other wall hypokinesis. Low-normal LV systolic function. LVEF = 50%. Duplex severe right ICA stenosis. - Current Medication List Current Medications: Active Medications Aspirin (Asa -) 300 mg RC DAILY [facility] Last Admin: 06/22/18 09:05 Dose: 300 mg Atorvastatin Calcium (Lipitor -) 40 mg PO HS [facility] Last Admin: 06/22/18 21:07 Dose: 40 mg Heparin Sodium (Porcine) (Heparin -) 5,000 unit SQ BID [facility] Last Admin: 06/23/18 10:00 Dose: 5,000 unit Potassium Chloride/Dextrose/Sod Cl (D5-1/2ns+20 Meq Kcl -) 20 meq in 1,000 mls @ 75 mls/hr IV ASDIR [facility] Last Admin: 06/22/18 17:26 Dose: Not Given Levothyroxine Sodium (Synthroid -) 75 mcg PO AM [facility] Last Admin: 06/23/18 06:46 Dose: 75 mcg Metoprolol Succinate (Toprol Xl -) 12.5 mg PO DAILY [facility] Last Admin: 06/23/18 10:00 Dose: 12.5 mg - Objective Vital Signs: Vital Signs Temperature 98.0 F 06/23/18 06:00 Pulse Rate 61 06/23/18 06:00 Respiratory Rate 20 06/23/18 06:00 Blood Pressure 166/103 06/23/18 06:00 O2 Sat by Pulse Oximetry (%) 96 06/22/18 21:00 Constitutional: Yes: No Distress, Calm Eyes: Yes: EOM Intact HENT: Yes: Normocephalic Neck: Yes: Trachea Midline Cardiovascular: Yes: Regular Rate and Rhythm Respiratory: Yes: CTA Bilaterally Gastrointestinal: Yes: Normal Bowel Sounds, Soft Extremities: Yes: WNL Edema: No Peripheral Pulses WNL: Yes Labs: CBC, BMP 06/22/18 08:45 06/22/18 08:45 INR, PTT INR 1.07 (0.83-1.09) 06/20/18 11:00 Problem List - Problems (1) Cerebrovascular accident (CVA) Assessment/Plan: workup per neuro. Needs event monitor on discharge. Possible ILR in the future. AC/antiplatelet therapy per neurology. No further testing needed at present. Call us with questions. Code(s): I63.9 - CEREBRAL INFARCTION, UNSPECIFIED Qualifiers: CVA mechanism: unspecified Qualified Code(s): I63.9 - Cerebral infarction, unspecified (2) Elevated troponin Assessment/Plan: This is a nonischemic pattern, seen in this patient in the past during acute illness. Often also seen during CVA. Echo without change. continue asa. Code(s): R74.8 - ABNORMAL LEVELS OF OTHER SERUM ENZYMES
[2018-06-23] MEDS: ASPIRIN 300 MG SUPP.RECT RC SCH (11:15)
--- NOTE | 2018-06-23 12:53 | PN ---
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: Selected Entries 06/21/18 06/21/18 06/21/18 01:00 05:47 10:00 Breakfast Lunch Supper Temperature 97.2 F L 97.1 F L 98.2 F 06/21/18 06/21/18 06/21/18 14:00 18:35 22:00 Breakfast Lunch 75% Supper 100% Temperature 99.1 F 98.9 F 98.9 F 06/22/18 06/22/18 06/22/18 02:00 06:00 08:30 Breakfast 100% Lunch Supper Temperature 98.8 F 98.1 F 06/22/18 09:01 Breakfast Lunch Supper Temperature 98.2 F Laboratory Tests 06/22/18 08:45 WBC 5.3 Selected Entries 06/22/18 06/23/18 06/23/18 18:00 02:00 06:00 Breakfast Supper 75% Temperature 99.1 F 98.0 F 06/23/18 06/23/18 10:00 10:59 Breakfast 100% Supper Temperature 98.5 F Laboratory Tests 06/22/18 08:45 WBC 5.3 On puree/nectar thick liquid. Swallow reassessed with mpulsive intake with 3 oz water test. Still with throat clearing with thin liquid. . Suggest MBS to upgrade diet with safety, Tuesday if still in [facility], or as out pt if d/c'd. Maintain diet as ordered at this time
[2018-06-23] MEDS: D5-1/2NS+20 MEQ KCL - 20 MEQ/1,000 ML INFUS.BAG IV SCH (21:00)
[2018-06-23] MEDS: ATORVASTATIN CA 40 MG TABLET (FP) PO SCH (21:02)
--- NOTE | 2018-06-24 06:11 | PN ---
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, Physician Chief Complaint: TIA History of Present Illness: 88 year-old woman with a PMHx of HTN, HLD, aortic aneursym s/p repair open 2000 at [facility], carotid stenosis, mild dementia. fibroids admitted with a fall and new right facial droop, right arm and leg weakness. she is unable to give a history. Noted with mild troponin elevation. Also history of Carotid stenosis. ECHO 06/20/18-overall normal LVEF with mild inferior wall hypokinesis, mild mr/tr , mod AR Echo 06/29/2017 showed mild LV dilatation with discrete septal hypertrophy. Moderate septal hypokinesis and mild other wall hypokinesis. Low-normal LV systolic function. LVEF = 50%. Duplex severe right ICA stenosis. Daughter at bedside Pt alert but confused Right sided weakness noted - Current Medication List Current Medications: Active Medications Aspirin (Asa -) 300 mg RC DAILY [facility] Last Admin: 06/23/18 11:15 Dose: 300 mg Atorvastatin Calcium (Lipitor -) 40 mg PO HS [facility] Last Admin: 06/23/18 21:02 Dose: 40 mg Heparin Sodium (Porcine) (Heparin -) 5,000 unit SQ BID [facility] Last Admin: 06/23/18 21:02 Dose: 5,000 unit Levothyroxine Sodium (Synthroid -) 75 mcg PO AM [facility] Last Admin: 06/23/18 06:46 Dose: 75 mcg Metoprolol Succinate (Toprol Xl -) 12.5 mg PO DAILY [facility] Last Admin: 06/23/18 10:00 Dose: 12.5 mg - Objective Vital Signs: Vital Signs Temperature 98.5 F 06/23/18 22:00 Pulse Rate 73 06/23/18 22:00 Respiratory Rate 20 06/23/18 22:00 Blood Pressure 145/87 06/23/18 22:00 O2 Sat by Pulse Oximetry (%) 100 06/23/18 21:00 Constitutional: Yes: Well Nourished, No Distress, Calm Cardiovascular: Yes: Regular Rate and Rhythm Respiratory: Yes: Regular Gastrointestinal: Yes: Normal Bowel Sounds, Soft Musculoskeletal: Yes: Muscle Weakness Edema: No Peripheral Pulses WNL: Yes Neurological: Yes: Alert, Pre-Existing Deficit, Weakness (RUE,RLE) Psychiatric: Yes: Alert Labs: CBC, BMP 06/22/18 08:45 06/22/18 08:45 INR, PTT INR 1.07 (0.83-1.09) 06/20/18 11:00 Problem List - Problems (1) Cerebrovascular accident (CVA) Assessment/Plan: -Seen by Neurology -MRI Brain noted -ASA -Atorvastatin 40 mg po HS -Physical therapy -U/S carotid extensive atherosclerosis Code(s): I63.9 - CEREBRAL INFARCTION, UNSPECIFIED Qualifiers: CVA mechanism: unspecified Qualified Code(s): I63.9 - Cerebral infarction, unspecified (2) Dementia Code(s): F03.90 - UNSPECIFIED DEMENTIA WITHOUT BEHAVIORAL DISTURBANCE (3) Elevated troponin Assessment/Plan: -Seen by cardiology -Etiology not cardiac Code(s): R74.8 - ABNORMAL LEVELS OF OTHER SERUM ENZYMES Assessment/Plan see problem list DVT prophylaxis Physical therapy Dispo: awaiting acceptance at [facility]
[2018-06-24] MEDS: LEVOTHYROXINE NA 75 MCG TABLET (FP) PO SCH (06:31)
[2018-06-24] MEDS: metoPROLOL SUCCINATE 25 MG TAB.SR.24H (FP) PO SCH (09:05)
[2018-06-24] MEDS: HEPARIN NA (PORCINE) 5,000 UNITS/ML 1ML VIAL SQ SCH ×2 (09:10→21:25)
[2018-06-24] MEDS ORDERED: PT OWN MED DRAWER 7, Y5N ONE ×2 (09:54→11:31)
[2018-06-24] MEDS: ASPIRIN 300 MG SUPP.RECT RC SCH (11:32)
[2018-06-24] MEDS: ATORVASTATIN CA 40 MG TABLET (FP) PO SCH (21:25)
[2018-06-25] MEDS: LEVOTHYROXINE NA 75 MCG TABLET (FP) PO SCH (06:09)
[2018-06-25] MEDS: ASPIRIN 325 MG TABLET PO SCH (09:01)
[2018-06-25] MEDS: metoPROLOL SUCCINATE 25 MG TAB.SR.24H (FP) PO SCH (09:01)
[2018-06-25] MEDS: HEPARIN NA (PORCINE) 5,000 UNITS/ML 1ML VIAL SQ SCH ×2 (09:01→21:10)
--- NOTE | 2018-06-25 09:55 | PN ---
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, Physician Chief Complaint: TIA History of Present Illness: 88 year-old woman with a PMHx of HTN, HLD, aortic aneursym s/p repair open 2000 at [facility], carotid stenosis, mild dementia. fibroids admitted with a fall and new right facial droop, right arm and leg weakness. she is unable to give a history. Noted with mild troponin elevation. Also history of Carotid stenosis. ECHO 06/20/18-overall normal LVEF with mild inferior wall hypokinesis, mild mr/tr , mod AR Echo 06/29/2017 showed mild LV dilatation with discrete septal hypertrophy. Moderate septal hypokinesis and mild other wall hypokinesis. Low-normal LV systolic function. LVEF = 50%. Duplex severe right ICA stenosis. Daughter at bedside Pt alert but confused Right sided weakness noted - Current Medication List Current Medications: Active Medications Aspirin (Asa -) 325 mg PO DAILY [facility] Last Admin: 06/25/18 09:01 Dose: 325 mg Atorvastatin Calcium (Lipitor -) 40 mg PO HS [facility] Last Admin: 06/24/18 21:25 Dose: 40 mg Heparin Sodium (Porcine) (Heparin -) 5,000 unit SQ BID [facility] Last Admin: 06/25/18 09:01 Dose: 5,000 unit Levothyroxine Sodium (Synthroid -) 75 mcg PO AM [facility] Last Admin: 06/25/18 06:09 Dose: 75 mcg Metoprolol Succinate (Toprol Xl -) 12.5 mg PO DAILY [facility] Last Admin: 06/25/18 09:01 Dose: 12.5 mg - Objective Vital Signs: Vital Signs Temperature 98.5 F 06/25/18 08:00 Pulse Rate 66 06/25/18 08:00 Respiratory Rate 20 06/25/18 08:00 Blood Pressure 144/78 06/25/18 08:00 O2 Sat by Pulse Oximetry (%) 93 L 06/25/18 09:00 Constitutional: Yes: Well Nourished, No Distress, Calm Cardiovascular: Yes: Regular Rate and Rhythm Respiratory: Yes: Regular Gastrointestinal: Yes: Normal Bowel Sounds, Soft Musculoskeletal: Yes: Muscle Weakness Edema: No Peripheral Pulses WNL: Yes Neurological: Yes: Alert, Pre-Existing Deficit Psychiatric: Yes: Alert Labs: CBC, BMP 06/22/18 08:45 06/22/18 08:45 INR, PTT INR 1.07 (0.83-1.09) 06/20/18 11:00 Problem List - Problems (1) Cerebrovascular accident (CVA) Assessment/Plan: -Seen by Neurology -MRI Brain noted -ASA -Atorvastatin 40 mg po HS -Physical therapy -U/S carotid extensive atherosclerosis Code(s): I63.9 - CEREBRAL INFARCTION, UNSPECIFIED Qualifiers: CVA mechanism: unspecified Qualified Code(s): I63.9 - Cerebral infarction, unspecified (2) Dementia Code(s): F03.90 - UNSPECIFIED DEMENTIA WITHOUT BEHAVIORAL DISTURBANCE (3) Elevated troponin Assessment/Plan: -Seen by cardiology -Etiology not cardiac Code(s): R74.8 - ABNORMAL LEVELS OF OTHER SERUM ENZYMES Assessment/Plan see problem list DVT prophylaxis Physical therapy Dispo: awaiting acceptance at [facility]
[2018-06-25 14:15] LABS: ANION GAP 10 (8-16); BLOOD UREA NITROGEN 17 mg/dL (7-18); CALCIUM 9.2 mg/dL (8.5-10.1); CHLORIDE 104 mmol/L (98-107); CO2 25 mmol/L (21-32); CREATININE 1.2 mg/dL (0.55-1.02); GLUCOSE,RANDOM 98 mg/dL (74-106); POTASSIUM 4.3 mmol/L (3.5-5.1); SODIUM 139 mmol/L (136-145)
--- NOTE | 2018-06-25 15:15 | DS ---
Physical Examination Vital Signs: Vital Signs Temperature 97.9 F 06/25/18 14:06 Pulse Rate 80 06/25/18 14:06 Respiratory Rate 18 06/25/18 14:06 Blood Pressure 139/85 06/25/18 14:06 O2 Sat by Pulse Oximetry (%) 93 L 06/25/18 09:00 Findings/Remarks: 88 year old female from home, with a significant PMH of HTN, HLD, aortic aneurysm s/p repair,Carotd Stenosis mild dementia, fibroids who presents to the emergency department via EMS with AMS and right sided facial droop since this morning. As per the patients daughter, she reports family heard a thump around 9:00 am while getting ready for work and went upstairs to find the patient on the floor. She states the patient was noted to be more confused than baseline and have a right sided facial droop. She states the patient is normally able to follow commands but this morning was unable to. She reports the patients last known well at approx 6:50 am this morning. The daughter also reports the patient is currently on Cipro for a UTI. The patients primary language is Mohawk with the daughter at bedside assisting with translation. She denies any recent fever, chills, nausea or vomit. Denies any recent complaints of headache , chest pain, palpitations, lightheadedness or shortness of breath. Denies any recent constipation, diarrhea, melena or hematochezia. Constitutional: Yes: Well Nourished, No Distress, Calm Cardiovascular: Yes: Regular Rate and Rhythm Respiratory: Yes: Regular Gastrointestinal: Yes: Normal Bowel Sounds, Soft Musculoskeletal: Yes: Muscle Weakness Edema: No Peripheral Pulses WNL: Yes Neurological: Yes: Alert, Pre-Existing Deficit, Weakness (right sided hemiperesis) Psychiatric: Yes: Alert Labs: CBC, BMP 06/22/18 08:45 06/25/18 13:40 Discharge Summary Reason For Visit: CEREBROVASCULAR ACCIDENT (CVA) Current Active Problems Cerebrovascular accident (CVA) (Acute) Dementia (Acute) Hospital Course: Initial Headt CT: There remains generalized volume loss with moderate ventricular dilatation and moderate to marked periventricular chronic asymmetric lucency is again seen in the left parietal occipital junction likely a chronic infarct . No mass lesion, gross acute infarct or intracranial hemorrhage are identified. There is no shift of the midline structures. There is suggestion of a focal chronic infarct in the right thalamus again seen. There is no shift of the midline structures. Craniocervical junction appears unremarkable. Moderate deviation of the nasal septum to the right. Visualized paranasal sinuses and mastoid air cells are well aerated. The calvarium is intact. No significant interval change. No gross acute intracranial pathology is identified. Correlate clinically to determine further evaluation and follow-up MRA/MRI brain: Old right thalamic lacunar infarct. There is no mass effect, midline shift, intra or extra axial collections. Moderate loss of volume of the brain parenchyma, with extensive coalescent, diffuse supratentorial white matter microangiopathic ischemic changes. On diffusion-weighted images, restrictive changes are seen in the posterior aspect of the left chaves radiata/centrum semiovale at the level of the left central, postcentral sulcus. Nondiagnostic MRA of the brain. U/S carotid: Extensive atherosclerotic disease with a stenosis in the 60-79% range involving the right ICA. Clinical correlation and follow-up recommended. Please see above discussion. Condition: Stable - Instructions Referrals: Cici Bates MD [Primary Care Provider] - [facility] - Home Medications Comprehensive Discharge Medication List: Ambulatory Orders Cholecalciferol (Vitamin D3) [Vitamin D3] 1,000 unit PO DAILY 06/27/17 Levothyroxine [Synthroid -] 75 mcg PO DAILY 06/27/17 Ciprofloxacin [Cipro (Restricted To Id)] 250 mg PO BID 06/20/18 Metoprolol Succinate [Toprol XL -] 12.5 mg PO DAILY 06/20/18
--- NOTE | 2018-06-25 17:35 | CON.NEURO ---
Consult - Past Medical History [employer]: Yes: Dementia Cardio/Vascular: Yes: Aneurysm (AAA), HTN, Hyperlipdemia, Other (carotid stenosis) ...: No Musculoskeletal: Yes: Osteoarthritis Endocrine: Yes: Hypothyroidism - Past Surgical History Past Surgical History: Yes: AAA Repair - Alcohol/Substance Use Hx Alcohol Use: No - Smoking History Smoking history: Never smoked Have you smoked in the past 12 months: No Home Medications - Allergies Allergies/Adverse Reactions: Allergies Allergy/AdvReac Type Severity Reaction Status Date / Time nifedipine [From Procardia] Allergy Verified 06/20/18 10:51 - Home Medications Home Medications: Ambulatory Orders Cholecalciferol (Vitamin D3) [Vitamin D3] 1,000 unit PO DAILY 06/27/17 Levothyroxine [Synthroid -] 75 mcg PO DAILY 06/27/17 Metoprolol Succinate [Toprol XL -] 12.5 mg PO DAILY 06/20/18 Aspirin [ASA -] 325 mg PO DAILY tablet 06/25/18 Atorvastatin Ca [Lipitor] 40 mg PO HS tablet 06/25/18 Physical Exam-Neuro Vital Signs: Vital Signs Temperature 97.9 F 06/25/18 14:06 Pulse Rate 80 06/25/18 14:06 Respiratory Rate 18 06/25/18 14:06 Blood Pressure 139/85 06/25/18 14:06 O2 Sat by Pulse Oximetry (%) 93 L 06/25/18 09:00 Labs: CBC, BMP 06/22/18 08:45 06/25/18 13:40 INR, PTT INR 1.07 (0.83-1.09) 06/20/18 11:00 Assessment/Plan cc Transient worsening of mental status and now back to her self HPI 88 year old female history of HTN,HLD,Aortic aneursym, mild dmeentia. Patient came to hospital for right facial paralysis, arm and leg weakness. Patient has thought to be drowsy and now back to herself. She has repeat ct head done and it was unremarkable. PMH Dementia, Aneurysm, HTN, HLD, B12 Deficiency, osteoarthrits FH,ROS, reviewed in chart - Allergies/Adverse Reactions: Allergies Allergy/AdvReac Type Severity Reaction Status Date / Time nifedipine [From Procardia] Allergy Verified 06/20/18 10:51 Medications-Metoprolol, aspirin and statin Neurological Examination Alert , oriented x 0 , able to follow simple command mild right upper extremity weakness and mild right facial droopiness repeat ct scan and previous mri reviewed blood test showed slight increase creatining Assessment- Patient is back to normal self, probable she has dehydration and caused her to have worsening of dementia, katy ziegler stroke Plan- suggest to continue current level of care She can be encouraged to drink more water, no further testing or treatment at this time, unliley to be tia, meningitis or seizure Thanking you so much Dominick Miramontes MD
[2018-06-25] MEDS: ATORVASTATIN CA 40 MG TABLET (FP) PO SCH (21:10)
[2018-06-26] MEDS: LEVOTHYROXINE NA 75 MCG TABLET (FP) PO SCH (06:01)
--- NOTE | 2018-06-26 07:42 | DS ---
Physical Examination Vital Signs: Vital Signs Temperature 98.5 F 06/26/18 06:00 Pulse Rate 62 06/26/18 06:00 Respiratory Rate 18 06/26/18 06:00 Blood Pressure 169/82 06/26/18 06:00 O2 Sat by Pulse Oximetry (%) 92 L 06/25/18 21:00 Findings/Remarks: 88 year old female from home, with a significant PMH of HTN, HLD, aortic aneurysm s/p repair,Carotd Stenosis mild dementia, fibroids who presents to the emergency department via EMS with AMS and right sided facial droop since this morning. As per the patients daughter, she reports family heard a thump around 9:00 am while getting ready for work and went upstairs to find the patient on the floor. She states the patient was noted to be more confused than baseline and have a right sided facial droop. She states the patient is normally able to follow commands but this morning was unable to. She reports the patients last known well at approx 6:50 am this morning. The daughter also reports the patient is currently on Cipro for a UTI. The patients primary language is Bangladeshi with the daughter at bedside assisting with translation. She denies any recent fever, chills, nausea or vomit. Denies any recent complaints of headache , chest pain, palpitations, lightheadedness or shortness of breath. Denies any recent constipation, diarrhea, melena or hematochezia. Cardiovascular: Yes: S1, S2 Respiratory: Yes: Regular, CTA Bilaterally Gastrointestinal: Yes: Normal Bowel Sounds, Soft Edema: No Neurological: Yes: Alert, Confusion, Unsteady Gait, Weakness Labs: CBC, BMP 06/22/18 08:45 06/25/18 13:40 Discharge Summary Reason For Visit: CEREBROVASCULAR ACCIDENT (CVA) Current Active Problems Cerebrovascular accident (CVA) (Acute) Dementia (Acute) Hospital Course: Initial Headt CT: There remains generalized volume loss with moderate ventricular dilatation and moderate to marked periventricular chronic asymmetric lucency is again seen in the left parietal occipital junction likely a chronic infarct . No mass lesion, gross acute infarct or intracranial hemorrhage are identified. There is no shift of the midline structures. There is suggestion of a focal chronic infarct in the right thalamus again seen. There is no shift of the midline structures. Craniocervical junction appears unremarkable. Moderate deviation of the nasal septum to the right. Visualized paranasal sinuses and mastoid air cells are well aerated. The calvarium is intact. No significant interval change. No gross acute intracranial pathology is identified. Correlate clinically to determine further evaluation and follow-up MRA/MRI brain: Old right thalamic lacunar infarct. There is no mass effect, midline shift, intra or extra axial collections. Moderate loss of volume of the brain parenchyma, with extensive coalescent, diffuse supratentorial white matter microangiopathic ischemic changes. On diffusion-weighted images, restrictive changes are seen in the posterior aspect of the left chaves radiata/centrum semiovale at the level of the left central, postcentral sulcus. Nondiagnostic MRA of the brain. U/S carotid: Extensive atherosclerotic disease with a stenosis in the 60-79% range involving the right ICA. Clinical correlation and follow-up recommended. Please see above discussion. - Problems (1) Cerebrovascular accident (CVA) Assessment/Plan: -Seen by Neurology -MRI Brain as above -ASA -Atorvastatin 40 mg po HS -Physical therapy -U/S carotid extensive atherosclerosis Code(s): I63.9 - CEREBRAL INFARCTION, UNSPECIFIED Qualifiers: CVA mechanism: unspecified Qualified Code(s): I63.9 - Cerebral infarction, unspecified (2) Dementia Code(s): F03.90 - UNSPECIFIED DEMENTIA WITHOUT BEHAVIORAL DISTURBANCE (3) Elevated troponin Assessment/Plan: -Seen by cardiology -Etiology not cardiac Code(s): R74.8 - ABNORMAL LEVELS OF OTHER SERUM ENZYMES Assessment/Plan see problem list DVT prophylaxis Physical therapy Dispo: awaiting acceptance at [facility] Condition: Stable - Instructions Referrals: Cici Bates MD [Primary Care Provider] - [facility]position[facility] - Home Medications Comprehensive Discharge Medication List: Ambulatory Orders Cholecalciferol (Vitamin D3) [Vitamin D3] 1,000 unit PO DAILY 06/27/17 Levothyroxine [Synthroid -] 75 mcg PO DAILY 06/27/17 Metoprolol Succinate [Toprol XL -] 12.5 mg PO DAILY 06/20/18 Aspirin [ASA -] 325 mg PO DAILY tablet 06/25/18 Atorvastatin Ca [Lipitor] 40 mg PO HS tablet 06/25/18
[2018-06-26] MEDS: metoPROLOL SUCCINATE 25 MG TAB.SR.24H (FP) PO SCH (09:15)
[2018-06-26] MEDS: HEPARIN NA (PORCINE) 5,000 UNITS/ML 1ML VIAL SQ SCH ×2 (09:15→22:01)
[2018-06-26] MEDS: ASPIRIN 325 MG TABLET PO SCH (09:16)
[2018-06-26] MEDS: ATORVASTATIN CA 40 MG TABLET (FP) PO SCH (22:01)
[2018-06-27] MEDS: LEVOTHYROXINE NA 75 MCG TABLET (FP) PO SCH (06:20)
--- NOTE | 2018-06-27 08:00 | PN ---
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, Physician History of Present Illness: more awake confused- no complaints - Current Medication List Current Medications: Active Medications Aspirin (Asa -) 325 mg PO DAILY [facility] Last Admin: 06/26/18 09:16 Dose: 325 mg Atorvastatin Calcium (Lipitor -) 40 mg PO HS [facility] Last Admin: 06/26/18 22:01 Dose: 40 mg Heparin Sodium (Porcine) (Heparin -) 5,000 unit SQ BID [facility] Last Admin: 06/26/18 22:01 Dose: 5,000 unit Levothyroxine Sodium (Synthroid -) 75 mcg PO AM [facility] Last Admin: 06/27/18 06:20 Dose: 75 mcg Metoprolol Succinate (Toprol Xl -) 12.5 mg PO DAILY [facility] Last Admin: 06/26/18 09:15 Dose: 12.5 mg - Objective Vital Signs: Vital Signs Temperature 97.7 F 06/27/18 06:00 Pulse Rate 64 06/27/18 06:00 Respiratory Rate 18 06/27/18 06:00 Blood Pressure 167/88 06/27/18 06:00 O2 Sat by Pulse Oximetry (%) 94 L 06/26/18 21:00 Cardiovascular: Yes: S1, S2 Respiratory: Yes: Regular, CTA Bilaterally Gastrointestinal: Yes: Normal Bowel Sounds, Soft. No: Tenderness Labs: CBC, BMP 06/22/18 08:45 06/25/18 13:40 INR, PTT INR 1.07 (0.83-1.09) 06/20/18 11:00 Problem List - Problems (1) Cerebrovascular accident (CVA) Assessment/Plan: -presentation c/w acute cva -mri noted--artifact -carotid duplex noted--stenosis--vasc noted -diet as ordered -neuro appreciated -swallow eval -pt Code(s): I63.9 - CEREBRAL INFARCTION, UNSPECIFIED Qualifiers: CVA mechanism: unspecified Qualified Code(s): I63.9 - Cerebral infarction, unspecified (2) Elevated troponin Assessment/Plan: -cardio on board -follow level Code(s): R74.8 - ABNORMAL LEVELS OF OTHER SERUM ENZYMES (3) Hypothyroid Assessment/Plan: -check tsh Code(s): E03.9 - HYPOTHYROIDISM, UNSPECIFIED (4) Urinary tract infection Assessment/Plan: -ua and uc Microbiology 06/20/18 11:25 Urine - Urine - Catheterized Urine Culture - Final NO GROWTH OBTAINED Code(s): N39.0 - URINARY TRACT INFECTION, SITE NOT SPECIFIED Qualifiers: Urinary tract infection type: site unspecified Hematuria presence: without hematuria Qualified Code(s): N39.0 - Urinary tract infection, site not specified Assessment/Plan dc planning awaiting placement
[2018-06-27] MEDS: HEPARIN NA (PORCINE) 5,000 UNITS/ML 1ML VIAL SQ SCH ×2 (09:26→21:24)
[2018-06-27] MEDS: ASPIRIN 325 MG TABLET PO SCH (09:26)
[2018-06-27] MEDS: metoPROLOL SUCCINATE 25 MG TAB.SR.24H (FP) PO SCH (09:26)
--- NOTE | 2018-06-27 11:47 | PN ---
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 Up for d/c. 3 oz water with out throat clearing or cough, but belching/hiccough. Swallow is delayed but quite brisk, triggered twice per sip. Esophageal vs WNL? MBS vs continue puree/nectar with reassessment at [facility].
[2018-06-27] MEDS: ATORVASTATIN CA 40 MG TABLET (FP) PO SCH (21:24)
[2018-06-28] MEDS: LEVOTHYROXINE NA 75 MCG TABLET (FP) PO SCH (06:29)
--- NOTE | 2018-06-28 08:26 | DS ---
Physical Examination Vital Signs: Vital Signs Temperature 98.6 F 06/28/18 05:25 Pulse Rate 70 06/28/18 05:25 Respiratory Rate 18 06/28/18 05:25 Blood Pressure 159/91 06/28/18 05:25 O2 Sat by Pulse Oximetry (%) 92 L 06/27/18 21:00 Findings/Remarks: 8 year old female from home, with a significant PMH of HTN, HLD, aortic aneurysm s/p repair,Carotd Stenosis mild dementia, fibroids who presents to the emergency department via EMS with AMS and right sided facial droop since this morning. As per the patients daughter, she reports family heard a thump around 9:00 am while getting ready for work and went upstairs to find the patient on the floor. She states the patient was noted to be more confused than baseline and have a right sided facial droop. She states the patient is normally able to follow commands but this morning was unable to. She reports the patients last known well at approx 6:50 am this morning. The daughter also reports the patient is currently on Cipro for a UTI. The patients primary language is Tongan with the daughter at bedside assisting with translation. She denies any recent fever, chills, nausea or vomit. Denies any recent complaints of headache , chest pain, palpitations, lightheadedness or shortness of breath. Denies any recent constipation, diarrhea, melena or hematochezia. Cardiovascular: Yes: S1, S2 Respiratory: Yes: Regular, CTA Bilaterally Gastrointestinal: Yes: Normal Bowel Sounds, Soft Labs: CBC, BMP 06/22/18 08:45 06/25/18 13:40 Discharge Summary Reason For Visit: CEREBROVASCULAR ACCIDENT (CVA) Current Active Problems Cerebrovascular accident (CVA) (Acute) Dementia (Acute) Hospital Course: Hospital Course: Initial Headt CT: There remains generalized volume loss with moderate ventricular dilatation and moderate to marked periventricular chronic asymmetric lucency is again seen in the left parietal occipital junction likely a chronic infarct . No mass lesion, gross acute infarct or intracranial hemorrhage are identified. There is no shift of the midline structures. There is suggestion of a focal chronic infarct in the right thalamus again seen. There is no shift of the midline structures. Craniocervical junction appears unremarkable. Moderate deviation of the nasal septum to the right. Visualized paranasal sinuses and mastoid air cells are well aerated. The calvarium is intact. No significant interval change. No gross acute intracranial pathology is identified. Correlate clinically to determine further evaluation and follow-up MRA/MRI brain: Old right thalamic lacunar infarct. There is no mass effect, midline shift, intra or extra axial collections. Moderate loss of volume of the brain parenchyma, with extensive coalescent, diffuse supratentorial white matter microangiopathic ischemic changes. On diffusion-weighted images, restrictive changes are seen in the posterior aspect of the left chaves radiata/centrum semiovale at the level of the left central, postcentral sulcus. Nondiagnostic MRA of the brain. U/S carotid: Extensive atherosclerotic disease with a stenosis in the 60-79% range involving the right ICA. Clinical correlation and follow-up recommended. Please see above discussion. Problems (1) Cerebrovascular accident (CVA) Assessment/Plan: -presentation c/w acute cva -mri noted--artifact -carotid duplex noted--stenosis--vasc noted -diet as ordered -neuro appreciated -swallow eval -pt Code(s): I63.9 - CEREBRAL INFARCTION, UNSPECIFIED Qualifiers: CVA mechanism: unspecified Qualified Code(s): I63.9 - Cerebral infarction, unspecified (2) Elevated troponin Assessment/Plan: -cardio on board -follow level Code(s): R74.8 - ABNORMAL LEVELS OF OTHER SERUM ENZYMES (3) Hypothyroid Assessment/Plan: -check tsh Code(s): E03.9 - HYPOTHYROIDISM, UNSPECIFIED (4) Urinary tract infection Assessment/Plan: -ua and uc Microbiology 06/20/18 11:25 Urine - Urine - Catheterized Urine Culture - Final NO GROWTH OBTAINED Code(s): N39.0 - URINARY TRACT INFECTION, SITE NOT SPECIFIED Qualifiers: Urinary tract infection type: site unspecified Hematuria presence: without hematuria Qualified Code(s): N39.0 - Urinary tract infection, site not specified Assessment/Plan dc planning awaiting placement Condition: Stable - Instructions Referrals: Cici Bates MD [Primary Care Provider] - Disposition: [facility] - Home Medications Comprehensive Discharge Medication List: Ambulatory Orders Cholecalciferol (Vitamin D3) [Vitamin D3] 1,000 unit PO DAILY 06/27/17 Levothyroxine [Synthroid -] 75 mcg PO DAILY 06/27/17 Metoprolol Succinate [Toprol XL -] 12.5 mg PO DAILY 06/20/18 Aspirin [ASA -] 325 mg PO DAILY tablet 06/25/18 Atorvastatin Ca [Lipitor] 40 mg PO HS tablet 06/25/18 Heparin - 5,000 unit SQ BID vial 06/27/18
[2018-06-28 09:31] LABS: BASO % 0.6 % (0-2.0); EOS % 0.4 % (0-4.5); HEMOGLOBIN 13.6 GM/dL (10.7-15.3); LYMPH % 18.3 % (8-40); MEAN CELL VOLUME 85.4 fl (80-96); MEAN PLT VOLUME 9.5 fl (7.5-11.1); MONO % 18.9 % (3.8-10.2); NEUT % 61.8 % (42.8-82.8); PLATELET COUNT 178 K/MM3 (134-434); RBC 4.69 M/mm3 (3.60-5.2); RDW 14.2 % (11.6-15.6); WHITE BLOOD COUNT 9.2 K/mm3 (4.0-10.0)
[2018-06-28] MEDS: ASPIRIN 325 MG TABLET PO SCH (09:43)
[2018-06-28] MEDS: metoPROLOL SUCCINATE 25 MG TAB.SR.24H (FP) PO SCH (09:43)
[2018-06-28] MEDS: HEPARIN NA (PORCINE) 5,000 UNITS/ML 1ML VIAL SQ SCH ×2 (09:44→21:20)
[2018-06-28 09:54] LABS: ALBUMIN 3.9 g/dl (3.4-5.0); ANION GAP 11 (8-16); BLOOD UREA NITROGEN 16 mg/dL (7-18); CHLORIDE 106 mmol/L (98-107); CO2 23 mmol/L (21-32); GLUCOSE,RANDOM 98 mg/dL (74-106); POTASSIUM 4.1 mmol/L (3.5-5.1); SODIUM 140 mmol/L (136-145)
[2018-06-28 09:59] LABS: ALK PHOS 102 U/L (45-117); BILIRUBIN,TOTAL 1.1 mg/dL (0.2-1.0); CALCIUM 8.9 mg/dL (8.5-10.1); SGOT/AST 17 U/L (15-37); SGPT/ALT 23 U/L (12-78); TOT PROT 7.2 g/dl (6.4-8.2)
[2018-06-28] MEDS: ATORVASTATIN CA 40 MG TABLET (FP) PO SCH (21:20)
[2018-06-29] MEDS: LEVOTHYROXINE NA 75 MCG TABLET (FP) PO SCH (06:09)
[2018-06-29] MEDS: HEPARIN NA (PORCINE) 5,000 UNITS/ML 1ML VIAL SQ SCH ×2 (09:03→21:21)
[2018-06-29] MEDS: ASPIRIN 325 MG TABLET PO SCH (09:03)
[2018-06-29] MEDS: metoPROLOL SUCCINATE 25 MG TAB.SR.24H (FP) PO SCH (09:04)
[2018-06-29 09:53] LABS: BASO % 0.3 % (0-2.0); EOS % 0.5 % (0-4.5); HEMATOCRIT 38.3 % (32.4-45.2); LYMPH % 23.6 % (8-40); MCHC 33.8 g/dl (32.0-36.0); MEAN PLT VOLUME 9.7 fl (7.5-11.1); MONO % 18.2 % (3.8-10.2); NEUT % 57.4 % (42.8-82.8); PLATELET COUNT 170 K/MM3 (134-434); RBC 4.46 M/mm3 (3.60-5.2); WHITE BLOOD COUNT 7.7 K/mm3 (4.0-10.0)
[2018-06-29 10:16] LABS: ALBUMIN 3.7 g/dl (3.4-5.0); ANION GAP 12 (8-16); BLOOD UREA NITROGEN 19 mg/dL (7-18); CALCIUM 8.7 mg/dL (8.5-10.1); CHLORIDE 106 mmol/L (98-107); CO2 23 mmol/L (21-32); CREATININE 1.1 mg/dL (0.55-1.02); GLUCOSE,RANDOM 125 mg/dL (74-106); SGOT/AST 14 U/L (15-37); SGPT/ALT 20 U/L (12-78); SODIUM 141 mmol/L (136-145)
[2018-06-29 10:18] LABS: ALK PHOS 91 U/L (45-117); BILIRUBIN,TOTAL 1.2 mg/dL (0.2-1.0); TOT PROT 6.9 g/dl (6.4-8.2)
--- NOTE | 2018-06-29 10:19 | PN ---
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 (short form) - Note 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: notes and events reviewed patient is 2+ assist for walking and transferring worsening dementia with neurological defecits with unsteady gait. patient can not go home will need snf pt and rehab for conditioning and transferring precautions. will call insurance with renal case manager to acquire authorization
--- NOTE | 2018-06-29 12:21 | PN ---
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, ONLINE ADVERTISING ANALYST - Note 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: Selected Entries 06/28/18 06/28/18 06/28/18 01:46 05:25 09:57 Breakfast 100% Lunch Supper Temperature 97.5 F L 98.6 F 06/28/18 06/28/18 06/28/18 10:00 14:49 16:30 Breakfast Lunch 100% Supper Temperature 98.4 F 98.1 F 98.4 F 06/28/18 06/28/18 06/29/18 20:00 22:42 01:20 Breakfast Lunch Supper 100% Temperature 98.1 F 98.2 F 06/29/18 06/29/18 06/29/18 05:57 08:45 11:53 Breakfast 100% Lunch Supper Temperature 97.7 F 98.1 F Laboratory Tests 06/29/18 09:25 WBC 7.7 Diet upgrade to chiopped diet with 1-2 soft items/thin liquid. Tolerating diet oob for all meals f/u dietary to provide some soft, easy to chew items eg pancakes with syrup, muffin,fish.
--- NOTE | 2018-06-29 18:31 | PN ---
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 (short form) - Note 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: SPOKE WITH [facility] AT 445PM AND THEY DENIED SNF PLACEMENT AND WILL ONLY COVER HOMEHEALTH AID
[2018-06-29] MEDS: ATORVASTATIN CA 40 MG TABLET (FP) PO SCH (21:21)
[2018-06-30] MEDS: LEVOTHYROXINE NA 75 MCG TABLET (FP) PO SCH (06:01)
[2018-06-30] MEDS: HEPARIN NA (PORCINE) 5,000 UNITS/ML 1ML VIAL SQ SCH ×2 (09:00→22:02)
[2018-06-30] MEDS: ASPIRIN 325 MG TABLET PO SCH (09:00)
[2018-06-30] MEDS: metoPROLOL SUCCINATE 25 MG TAB.SR.24H (FP) PO SCH (09:00)
--- NOTE | 2018-06-30 10:51 | PN ---
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, FACILITIES MAINTENANCE MANAGER - Note 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: Selected Entries 06/28/18 06/28/18 06/28/18 01:46 05:25 09:57 Breakfast 100% Lunch Supper Temperature 97.5 F L 98.6 F 06/28/18 06/28/18 06/28/18 10:00 14:49 16:30 Breakfast Lunch 100% Supper Temperature 98.4 F 98.1 F 98.4 F 06/28/18 06/28/18 06/29/18 20:00 22:42 01:20 Breakfast Lunch Supper 100% Temperature 98.1 F 98.2 F 06/29/18 06/29/18 06/29/18 05:57 08:45 11:53 Breakfast 100% Lunch Supper Temperature 97.7 F 98.1 F Laboratory Tests 06/29/18 09:25 WBC 7.7 Diet upgrade to chopped diet with 1-2 soft items/thin liquid. Tolerating diet well with good appetite. oob for all meals f/u dietary to provide some soft, easy to chew items eg pancakes with syrup, muffin,fish, tuna, egg, chicken salad..
--- NOTE | 2018-06-30 14:27 | DS ---
Physical Examination Vital Signs: Vital Signs Temperature 98.7 F 06/30/18 07:52 Pulse Rate 64 06/30/18 07:52 Respiratory Rate 16 06/30/18 07:52 Blood Pressure 143/87 06/30/18 07:52 O2 Sat by Pulse Oximetry (%) 93 L 06/30/18 07:52 Constitutional: Yes: No Distress Eyes: Yes: WNL HENT: Yes: WNL Neck: Yes: WNL Cardiovascular: Yes: WNL Respiratory: Yes: WNL Gastrointestinal: Yes: WNL Renal/: Yes: Incontinence Musculoskeletal: Yes: Muscle Weakness Extremities: Yes: Other Edema: Yes Integumentary: Yes: WNL Wound/Incision: Yes: Dressing Dry and Intact Neurological: Yes: Confusion, Unsteady Gait, Weakness ...Motor Strength: LLE, RLE Psychiatric: Yes: Other Labs: CBC, BMP 06/29/18 09:25 06/29/18 09:25 Discharge Summary Reason For Visit: CEREBROVASCULAR ACCIDENT (CVA) Current Active Problems Cerebrovascular accident (CVA) (Acute) Dementia (Acute) Procedures: Principal: CT SCAN/MRI/MRA Hospital Course: ADMITTED WITH AMS DEMENTIA UNSTEADY GAIT LEG WEAKNESS, R/O CVA DONE FOUND WITH SEVERE COGNITIVE DYSFUNCTION Condition: Stable - Instructions Diet, Activity, Other Instructions: CHOPPED SEE YOUR PMD OUTPATIENT Referrals: Cici Bates MD [Primary Care Provider] - Disposition: [facility]/HOME HEALTH CARE - Home Medications Comprehensive Discharge Medication List: Ambulatory Orders Cholecalciferol (Vitamin D3) [Vitamin D3] 1,000 unit PO DAILY 06/27/17 Levothyroxine [Synthroid -] 75 mcg PO DAILY 06/27/17 Metoprolol Succinate [Toprol XL -] 12.5 mg PO DAILY 06/20/18 Aspirin [ASA -] 325 mg PO DAILY tablet 06/25/18 Atorvastatin Ca [Lipitor] 40 mg PO HS tablet 06/25/18 Heparin - 5,000 unit SQ BID vial 06/27/18
[2018-06-30] MEDS: ATORVASTATIN CA 40 MG TABLET (FP) PO SCH (22:02)
[2018-07-01] MEDS: LEVOTHYROXINE NA 75 MCG TABLET (FP) PO SCH (06:39)
[2018-07-01] MEDS: ASPIRIN 325 MG TABLET PO SCH (09:20)
[2018-07-01] MEDS: metoPROLOL SUCCINATE 25 MG TAB.SR.24H (FP) PO SCH (09:20)
[2018-07-01] MEDS: HEPARIN NA (PORCINE) 5,000 UNITS/ML 1ML VIAL SQ SCH ×2 (09:21→21:01)
--- NOTE | 2018-07-01 13:36 | PN ---
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, Physician - Current Medication List Current Medications: Active Medications Aspirin (Asa -) 325 mg PO DAILY [facility] Last Admin: 07/01/18 09:20 Dose: 325 mg Atorvastatin Calcium (Lipitor -) 40 mg PO HS [facility] Last Admin: 06/30/18 22:02 Dose: 40 mg Heparin Sodium (Porcine) (Heparin -) 5,000 unit SQ BID [facility] Last Admin: 07/01/18 09:21 Dose: 5,000 unit Levothyroxine Sodium (Synthroid -) 75 mcg PO AM [facility] Last Admin: 07/01/18 06:39 Dose: 75 mcg Metoprolol Succinate (Toprol Xl -) 12.5 mg PO DAILY [facility] Last Admin: 07/01/18 09:20 Dose: 12.5 mg - Objective Vital Signs: Vital Signs Temperature 98.6 F 07/01/18 06:11 Pulse Rate 72 07/01/18 10:00 Respiratory Rate 18 07/01/18 10:00 Blood Pressure 133/68 07/01/18 10:00 O2 Sat by Pulse Oximetry (%) 93 L 07/01/18 10:00 Cardiovascular: Yes: S1, S2 Respiratory: Yes: Regular, CTA Bilaterally Gastrointestinal: Yes: Normal Bowel Sounds, Soft Labs: CBC, BMP 06/29/18 09:25 06/29/18 09:25 INR, PTT INR 1.07 (0.83-1.09) 06/20/18 11:00 Problem List - Problems (1) Cerebrovascular accident (CVA) Assessment/Plan: -presentation c/w acute cva -mri noted--artifact -carotid duplex noted--stenosis--vasc noted -diet as ordered -neuro appreciated -swallow eval -pt Code(s): I63.9 - CEREBRAL INFARCTION, UNSPECIFIED Qualifiers: CVA mechanism: unspecified Qualified Code(s): I63.9 - Cerebral infarction, unspecified (2) Elevated troponin Assessment/Plan: -cardio on board -follow level Code(s): R74.8 - ABNORMAL LEVELS OF OTHER SERUM ENZYMES (3) Hypothyroid Assessment/Plan: -check tsh Code(s): E03.9 - HYPOTHYROIDISM, UNSPECIFIED (4) Urinary tract infection Assessment/Plan: -ua and uc Microbiology 06/20/18 11:25 Urine - Urine - Catheterized Urine Culture - Final NO GROWTH OBTAINED Code(s): N39.0 - URINARY TRACT INFECTION, SITE NOT SPECIFIED Qualifiers: Hematuria presence: without hematuria Qualified Code(s): N39.0 - Urinary tract infection, site not specified Assessment/Plan dc planning awaiting placement
[2018-07-01] MEDS: ATORVASTATIN CA 40 MG TABLET (FP) PO SCH (21:01)
[2018-07-02] MEDS: LEVOTHYROXINE NA 75 MCG TABLET (FP) PO SCH (06:03)
[2018-07-02] MEDS: metoPROLOL SUCCINATE 25 MG TAB.SR.24H (FP) PO SCH (09:52)
[2018-07-02] MEDS: ASPIRIN 325 MG TABLET PO SCH (09:52)
[2018-07-02] MEDS: HEPARIN NA (PORCINE) 5,000 UNITS/ML 1ML VIAL SQ SCH ×2 (09:52→21:04)
--- NOTE | 2018-07-02 11:29 | PN ---
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, Physician History of Present Illness: more awake confused- no complaints - Current Medication List Current Medications: Active Medications Aspirin (Asa -) 325 mg PO DAILY [facility] Last Admin: 07/02/18 09:52 Dose: 325 mg Atorvastatin Calcium (Lipitor -) 40 mg PO HS [facility] Last Admin: 07/01/18 21:01 Dose: 40 mg Heparin Sodium (Porcine) (Heparin -) 5,000 unit SQ BID [facility] Last Admin: 07/02/18 09:52 Dose: 5,000 unit Levothyroxine Sodium (Synthroid -) 75 mcg PO AM [facility] Last Admin: 07/02/18 06:03 Dose: 75 mcg Metoprolol Succinate (Toprol Xl -) 12.5 mg PO DAILY [facility] Last Admin: 07/02/18 09:52 Dose: 12.5 mg - Objective Vital Signs: Vital Signs Temperature 98.2 F 07/02/18 09:51 Pulse Rate 64 07/02/18 09:51 Respiratory Rate 18 07/02/18 09:51 Blood Pressure 166/77 07/02/18 09:51 O2 Sat by Pulse Oximetry (%) 92 L 07/01/18 21:00 Cardiovascular: Yes: Regular Rate and Rhythm Respiratory: Yes: Regular, CTA Bilaterally Gastrointestinal: Yes: Normal Bowel Sounds, Soft Labs: CBC, BMP 06/29/18 09:25 06/29/18 09:25 INR, PTT INR 1.07 (0.83-1.09) 06/20/18 11:00 Problem List - Problems (1) Cerebrovascular accident (CVA) Assessment/Plan: -presentation c/w acute cva -mri noted--artifact -carotid duplex noted--stenosis--vasc noted -diet as ordered -neuro appreciated -swallow eval -pt Code(s): I63.9 - CEREBRAL INFARCTION, UNSPECIFIED Qualifiers: CVA mechanism: unspecified Qualified Code(s): I63.9 - Cerebral infarction, unspecified (2) Elevated troponin Assessment/Plan: -cardio on board -follow level Code(s): R74.8 - ABNORMAL LEVELS OF OTHER SERUM ENZYMES (3) Hypothyroid Assessment/Plan: -check tsh Code(s): E03.9 - HYPOTHYROIDISM, UNSPECIFIED (4) Urinary tract infection Assessment/Plan: -ua and uc Microbiology 06/20/18 11:25 Urine - Urine - Catheterized Urine Culture - Final NO GROWTH OBTAINED Code(s): N39.0 - URINARY TRACT INFECTION, SITE NOT SPECIFIED Qualifiers: Hematuria presence: without hematuria Qualified Code(s): N39.0 - Urinary tract infection, site not specified Assessment/Plan dc planning awaiting placement
[2018-07-02] MEDS ORDERED: PT OWN MED DRAWER 7, Y5N ONE (20:34)
[2018-07-02] MEDS: ATORVASTATIN CA 40 MG TABLET (FP) PO SCH (21:04)
[2018-07-03] MEDS: LEVOTHYROXINE NA 75 MCG TABLET (FP) PO SCH (06:11)
[2018-07-03] MEDS: metoPROLOL SUCCINATE 25 MG TAB.SR.24H (FP) PO SCH (09:27)
[2018-07-03] MEDS: ASPIRIN 325 MG TABLET PO SCH (09:27)
[2018-07-03] MEDS: HEPARIN NA (PORCINE) 5,000 UNITS/ML 1ML VIAL SQ SCH (09:28)
--- NOTE | 2018-07-03 10:21 | PN ---
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, Physician - Current Medication List Current Medications: Active Medications Aspirin (Asa -) 325 mg PO DAILY [facility] Last Admin: 07/03/18 09:27 Dose: 325 mg Atorvastatin Calcium (Lipitor -) 40 mg PO HS [facility] Last Admin: 07/02/18 21:04 Dose: 40 mg Heparin Sodium (Porcine) (Heparin -) 5,000 unit SQ BID [facility] Last Admin: 07/03/18 09:28 Dose: 5,000 unit Levothyroxine Sodium (Synthroid -) 75 mcg PO AM [facility] Last Admin: 07/03/18 06:11 Dose: 75 mcg Metoprolol Succinate (Toprol Xl -) 12.5 mg PO DAILY [facility] Last Admin: 07/03/18 09:27 Dose: 12.5 mg - Objective Vital Signs: Vital Signs Temperature 98.9 F 07/03/18 09:04 Pulse Rate 63 07/03/18 09:04 Respiratory Rate 18 07/03/18 09:04 Blood Pressure 183/73 07/03/18 09:04 O2 Sat by Pulse Oximetry (%) 95 07/03/18 09:00 Cardiovascular: Yes: S1, S2 Respiratory: Yes: Regular, CTA Bilaterally Gastrointestinal: Yes: Normal Bowel Sounds, Soft Labs: CBC, BMP 06/29/18 09:25 06/29/18 09:25 INR, PTT INR 1.07 (0.83-1.09) 06/20/18 11:00 Problem List - Problems (1) Cerebrovascular accident (CVA) Assessment/Plan: -presentation c/w acute cva -mri noted--artifact -carotid duplex noted--stenosis--vasc noted -diet as ordered -neuro appreciated -swallow eval -pt Code(s): I63.9 - CEREBRAL INFARCTION, UNSPECIFIED Qualifiers: CVA mechanism: unspecified Qualified Code(s): I63.9 - Cerebral infarction, unspecified (2) Elevated troponin Assessment/Plan: -cardio on board -follow level Code(s): R74.8 - ABNORMAL LEVELS OF OTHER SERUM ENZYMES (3) Hypothyroid Assessment/Plan: -check tsh Code(s): E03.9 - HYPOTHYROIDISM, UNSPECIFIED (4) Urinary tract infection Assessment/Plan: -ua and uc Microbiology 06/20/18 11:25 Urine - Urine - Catheterized Urine Culture - Final NO GROWTH OBTAINED Code(s): N39.0 - URINARY TRACT INFECTION, SITE NOT SPECIFIED Qualifiers: Hematuria presence: without hematuria Qualified Code(s): N39.0 - Urinary tract infection, site not specified Assessment/Plan dc planning placement --DENIED--LOOKING INTO HOME CARE
[2018-07-03 14:49] VITALS: BP 162/84; PULSE 62; TEMP 98.7
== END 2018-07-03 19:01 | disposition home health service (06) | DRG 65 ==
LOC: JER 10:36 → JERBED 13:16 → J4S 22:46
PROVIDERS: ADMIT Family Medicine; ATTEND Family Medicine
DX: I63.9 Cerebral infarction, unspecified (principal); N39.0 Urinary tract infection, site not specified; I47.1 Supraventricular tachycardia; G81.91 Hemiplegia, unspecified affecting right dominant side; R47.01 Aphasia; R29.700 NIHSS score 0; R29.810 Facial weakness; I10 Essential (primary) hypertension; E78.5 Hyperlipidemia, unspecified; F03.90 Unspecified dementia, unspecified severity, without behavioral disturbance, psychotic disturbance, mood disturbance, and anxiety; D25.9 Leiomyoma of uterus, unspecified; E03.9 Hypothyroidism, unspecified; I71.4 Abdominal aortic aneurysm, without rupture; M19.90 Unspecified osteoarthritis, unspecified site; R74.8 Abnormal levels of other serum enzymes; E53.8 Deficiency of other specified B group vitamins; I25.10 Atherosclerotic heart disease of native coronary artery without angina pectoris; E86.0 Dehydration; R26.81 Unsteadiness on feet; R68.89 Other general symptoms and signs; I65.21 Occlusion and stenosis of right carotid artery
CPT/HCPCS: 36415; 70450-TC; 70544-TC; 70551-TC; 71045-TC-FY; 72170-TC-FY; 73090-TC-RT-FY; 73560-TC-RT-FY; 74230-TC-FY; 80048; 80053; 80061; 81003; 82465; 82550; 82962; 83036; 83718; 83721; 83735; 84478; 84484; 85025; 85610; 86850; 86900; 86901; 87086; 92611-GN; 93005; 93010; 93306-TC; 93880-TC; 97116-GP; 97161-GP; 99284-25; J1644; J7030

== ENCOUNTER 2019-05-28 15:58 | Inpatient (IN) | payer BC, OTHER | END 2019-06-11 18:09 | disposition home health service (06) | LOC: JER 15:58 → JERBED 05-29 05:53 → J4S 05-29 17:43 ==